=== PATIENT | female | born 1940 | race Caucasian/White ===

== ENCOUNTER 2020-05-16 05:13 | Inpatient (IN) | payer MEDICARE, SELFPAY ==
[2020-05-16] VITALS (123 sets, daily range): BP systolic 69–165; BP diastolic 29–79; PULSE 82–106; RESP 0–39; TEMP 36.4–37.1; O2SAT 87–99; BMI 29.2
--- NOTE | 2020-05-16 05:36 | XR_ITS ---
WS: [id number] PORTABLE CHEST HISTORY: Weakness COMPARISON: 12/21/2013 Lungs are clear and well expanded. No pleural effusion or pneumothorax. Cardiac size: Normal. Mediastinum/Aorta: Normal mediastinum. No osseous abnormality seen. XR/XR chest 1V portable [id number] IMPRESSION: Unremarkable portable chest.
--- NOTE | 2020-05-16 05:37 | ECG_ITS ---
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 Measurements Intervals [place] Rate: 99 P: 20 NM: 130 QRS: -10 QRSD: 76 T: 14 QT: 343 QTc: 440 Interpretive Statements SINUS RHYTHM MINIMAL ST DEPRESSION [0.025+ mV ST DEPRESSION] No previous ECG available for comparison Electronically Signed On 05-16-2020 22:40:19 HALL MONITOR by Tiffany Martinez M.D. [id number]
--- NOTE | 2020-05-16 05:37 | ED_ITS ---
Documented by User: Betsy Wallace 05/16/20 05:43 HPI - General Adult General: Chief complaint: General Medical Stated complaint: vomiting/cold shakes/lower back pain Time Seen by Provider: 05/16/20 05:23 Source: patient Mode of arrival: ambulatory Limitations: no limitations History of Present Illness: HPI narrative: Cheryl is a very nice 79-year-old female who comes in complaining of achy, nauseated and low back pain. Patient states she was in her normal state of health yesterday and went to bed last night but then about 4 AM she awoke with pain across her lower back on both sides that went down into both hips. She feels shaky and tremulous. She states she was diaphoretic and extremely nauseated. She vomited here on her way to the hospital. She felt like she had a fever at home but when she measured her temperature it was normal. Patient states she is never had anything like this before. She is not been around anybody sick. Her is here with her and he is asymptomatic. Patient denies any headache, neck pain, chest pain but does admit to mild shortness of breath. She denies abdominal pain, flank pain, urinary symptoms, skin rashes or other complaints. Associated symptoms: Reports diaphoresis, dyspnea, malaise, nausea and vomiting; Deny chest pain, confusion, headache(s), rash, palpitations or syncope Review of Systems Const: Reports: fever(s), chills, body aches, fatigue, malaise and diaphoresis Eyes: Denies: change in vision, blurry vision, photophobia, eye discomfort, eye discharge, eye redness or yellow eyes ENMT: Denies: throat pain, odynophagia, hoarseness, swelling of lips/tongue, ear or mastoid pain, ear discharge, change in hearing or nasal discharge Card: Denies: chest pain, palpitations, irregular heart rhythm, edema, lightheadedness, syncope, pre-syncope, dyspnea on exertion or orthopnea Resp: Reports: dyspnea; Denies: productive cough, non-productive cough, wheezing, hemoptysis or chest congestion GI: Reports: nausea and vomiting; Denies: abdominal pain, hematemesis, coffee ground emesis, heartburn, diarrhea, constipation, GI cramping, hematochezia or melena : Denies: flank pain, dysuria, urinary frequency, urinary urgency or hematuria Musc: Reports: back pain; Denies: neck pain, extremity pain, extremity swelling, joint pain, joint swelli ng, joint redness, joint warmth or joint stiffness Skin/Breast: Denies: rash, pruritus, erythema, skin pain or skin tenderness Neuro: Denies: headache(s), numbness in extremities, weakness in extremities, sensory changes, lack of coordination, difficulty walking, dizziness, vertigo, confusion, Slurred speech present or seizure-like activity Stas/Lymph: Denies: easy bruising, easy bleeding, petechiae, purpura or enlarged lymph nodes All/Imm: Denies: urticaria, throat swelling, tongue swelling, facial swelling or acute wheezing PFSH ED PFSH: Medical History Hypothyroidism Insomnia Surgical History H/O: hysterectomy Physical Exam Const: COMMON NORMALS: no acute distress, patient oriented x3, no limitations and alert GENERAL APPEARANCE: cooperative HENMT: COMMON NORMALS: normocephalic, atraumatic, external ears normal, EAC's normal and Normal external nose present HEAD & SCALP: normal to inspection, normocephalic and atraumatic FACE & SINUS: normal facial exam and face symmetric NOSE: Normal external nose present and Normal nares present EXTERNAL EAR: Yes external ears normal EXTERNAL AUDITORY CANAL: EAC's normal MOUTH: Normal oral and palatal mucosa present, lip normal and tongue normal Eye: COMMON NORMALS: Equal, round and reactive pupils present and conjunctivae normal GENERAL EYE: appearance normal, both eyes and all related structures ALIGNMENT: Yes alignment normal PERIORBITAL: periorbital findings normal EYELID: eyelids normal CONJUNCTIVA: Yes conjunctivae normal SCLERA: sclerae normal PUPIL: Yes Equal, round and reactive pupils present Neck/C-Spine: COMMON NORMALS: full ROM, no lymphadenopathy, supple, no meningeal signs and no JVD GENERAL: Yes normal visual inspection and Yes trachea midline Chest: COMMONS NORMALS: normal inspection of the chest and normal palpation of entire chest wall Resp: COMMON NORMALS: normal respiratory effort, No retractions, No use of accessory muscles and clear to auscultation bilaterally EFFORT & INSPECTION: Yes able to speak in complete sentences and Yes symmetric chest movement AUSCULTATION: clear to auscultation bilaterally, no crackles, no rales, rhonchi and no wheezes Cardio: COMMON NORMALS: no JVD, regular rate, regular rhythm, S1 normal heart sound present and S2 normal heart sound present RATE: regular rate RHYTHM: regular rhythm HEART SOUNDS: S1 normal heart sound present, S2 normal heart sound present, no click, no gallops, no murmurs and no rubs GI: COMMON NORMALS: Soft to palpation and No hepatosplenomegaly present PALPATION: Yes Soft to palpation, No Tenderness to palpation present (GI), No Guarding due to palpation present (GI), No Rigid due to palpation, Yes No hepatosplenomegaly present, No Hernia present, No Palpable mass present and No Pulsatile mass present : COMMON NORMALS: Yes no CVA tenderness BLADDER/KIDNEY EXAM: Yes no CVA tenderness EXTERNAL FEMALE EXAM: No Hernia present Back/Pelvis: COMMON NORMALS: no CVA tenderness, thoracic and lumbar spine normal to inspection, no thoracic nor lumbar tenderness and thoraco-lumbar ROM normal Extremity: COMMON NORMALS: normal to inspection, full ROM, capillary refill normal, no joint enlargement, no clubbing, cyanosis or edema and no calf tenderness Neuro: COMMON NORMALS: patient oriented x3, CN's II-XII intact bilaterally, moves all extremities, no focal motor deficits and no sensory deficits noted SENSORIUM/ORIENTATION: Yes alert MENINGEAL SIGNS: Yes no meningeal signs SPEECH: speech normal Psych: COMMON NORMALS: mental status grossly normal, Normal thought process present, cooperative, normal affect, speech normal and activity/motor behavior normal SPEECH: Yes normal speech THOUGHT PROCESS: Normal thought process present Skin: COMMON NORMALS: no rashes or lesions noted, turgor normal, no jaundice, no petechiae and no mottling GENERAL SKIN EXAM: no rashes or lesions noted and turgor normal Course Vital Signs: Vital signs: Vital Signs Temperature 97.7 F 05/16/20 07:59 Pulse Rate 106 H 05/16/20 07:59 Respiratory Rate 17 05/16/20 06:21 Blood Pressure 132/61 05/16/20 07:59 Pulse Oximetry 96 05/16/20 07:59 [facility] - General Adult Lab Data: Labs: Lab Results 05/16/20 05/16/20 05/16/20 Range/Units 05:55 05:55 05:55 WBC 1.5 L (4.0-10.0) 10^3/ uL RBC 4.24 (4.1-5.3) 10^6/u L Hgb 12.4 (11.5-15.3) g/dL Hct 40.1 (37.0-47.0) % MCV 94.6 (81-99) fL MCH 29.2 (28.0-34.0) pg MCHC 30.9 (30.0-36.0) g/dL RDW 13.2 (12.1-15.1) % Plt Count 276 (130-400) 10^3/c mm MPV 10.1 (7.4-10.4) fL Neut % (Auto) 55.7 % Lymph % (Auto) 33.6 % [place] % (Auto) 0.0 % Eos % (Auto) 1.3 % Baso % (Auto) 0.7 % Neut # (Auto) 0.83 L* (1.8-7.7) 10^3/u L Lymph # (Auto) 0.5 L (0.8-4.8) 10^3/u L [place] # (Auto) 0.0 L (0.2-0.9) 10^3/u L Eos # (Auto) 0.0 (0.0-0.8) 10^3/u L Baso # (Auto) 0.0 (0.0-0.1) 10^3/u L Nucleated RBC % (a uto) 0 % Nucleated RBCs # 0.0 /100WBC Sodium 141 (136-145) mmol/L Potassium 3.7 (3.5-5.1) mmol/L Chloride 105 (98-107) mmol/L Carbon Dioxide 22 (22-29) mmol/L Anion Gap 17.7 (5-19) BUN 17 (8-23) mg/dL Creatinine 0.5 (0.5-0.9) mg/dL GFR Calculation Not Reportable Glucose 87 (65-115) mg/dL Calculated Osmolal ity 293 (285-295) mOsm/k g Lactic Acid 2.9 H (0.5-2.2) mmol/L Calcium 9.4 (8.5-10.5) mg/dL Magnesium 1.7 (1.7-2.3) mg/dL Total Bilirubin 0.6 (0.15-1.2) mg/dL AST 13 (0-32) U/L ALT 11 (0-33) U/L Alkaline Phosphata se 81 (35-105) IU/L Troponin T Baselin e (0-10) ng/L Total Protein 6.6 (6.6-8.7) g/dL Albumin 4.1 (3.5-5.2) g/dL Globulin 2.5 (1.3-4.6) g/dL Lipase 31 (13-60) U/L Urine Color (Yellow) Urine Appearance (CLEAR) Urine pH (5-7) Ur Specific Gravit y (1.005-1.030) Urine Protein (Negative) Urine Glucose (UA) (Normal) Urine Ketones (Negative) Urine Blood (Negative) Urine Nitrate (Negative) Urine Bilirubin (Negative) Urine Urobilinogen (Negative) mg/dL Ur Leukocyte Mellisa ase (Negative) Urine RBC (0-2) /hpf Urine WBC (0-5) /hpf Ur Squamous Epith Cells (0-5) /hpf Amorphous Sediment Urine Bacteria (NONE) /hpf Influenza Type A A g (Negative) Influenza Type B A g (Negative) SARS-CoV-2 Ag (Rap id) (Negative) 05/16/20 05/16/20 05/16/20 Range/Units 05:55 06:05 06:05 WBC (4.0-10.0) 10^3/ uL RBC (4.1-5.3) 10^6/u L Hgb (11.5-15.3) g/dL Hct (37.0-47.0) % MCV (81-99) fL MCH (28.0-34.0) pg MCHC (30.0-36.0) g/dL RDW (12.1-15.1) % Plt Count (130-400) 10^3/c mm MPV (7.4-10.4) fL Neut % (Auto) % Lymph % (Auto) % [place] % (Auto) % Eos % (Auto) % Baso % (Auto) % Neut # (Auto) (1.8-7.7) 10^3/u L Lymph # (Auto) (0.8-4.8) 10^3/u L [place] # (Auto) (0.2-0.9) 10^3/u L Eos # (Auto) (0.0-0.8) 10^3/u L Baso # (Auto) (0.0-0.1) 10^3/u L Nucleated RBC % (a uto) % Nucleated RBCs # /100WBC Sodium (136-145) mmol/L Potassium (3.5-5.1) mmol/L Chloride (98-107) mmol/L Carbon Dioxide (22-29) mmol/L Anion Gap (5-19) BUN (8-23) mg/dL Creatinine (0.5-0.9) mg/dL GFR Calculation Glucose (65-115) mg/dL Calculated Osmolal ity (285-295) mOsm/k g Lactic Acid (0.5-2.2) mmol/L Calcium (8.5-10.5) mg/dL Magnesium (1.7-2.3) mg/dL Total Bilirubin (0.15-1.2) mg/dL AST (0-32) U/L ALT (0-33) U/L Alkaline Phosphata se (35-105) IU/L Troponin T Baselin e 10 (0-10) ng/L Total Protein (6.6-8.7) g/dL Albumin (3.5-5.2) g/dL Globulin (1.3-4.6) g/dL Lipase (13-60) U/L Urine Color Yellow (Yellow) Urine Appearance Cloudy A (CLEAR) Urine pH 5 (5-7) Ur Specific Gravit y 1.020 (1.005-1.030) Urine Protein Neg (Negative) Urine Glucose (UA) Norm (Normal) Urine Ketones Negative (Negative) Urine Blood Neg (Negative) Urine Nitrate Positive H (Negative) Urine Bilirubin Neg (Negative) Urine Urobilinogen Norm (Negative) mg/dL Ur Leukocyte Mellisa ase 2+ H (Negative) Urine RBC None (0-2) /hpf Urine WBC Too numerous to c nt H (0-5) /hpf Ur Squamous Epith Cells Too numerous to c nt H (0-5) /hpf Amorphous Sediment Not Reportable Urine Bacteria 4+ H (NONE) /hpf Influenza Type A A g Negative (Negative) Influenza Type B A g Negative (Negative) SARS-CoV-2 Ag (Rap id) (Negative) 05/16/20 Range/Units 06:05 WBC (4.0-10.0) 10^3/ uL RBC (4.1-5.3) 10^6/u L Hgb (11.5-15.3) g/dL Hct (37.0-47.0) % MCV (81-99) fL MCH (28.0-34.0) pg MCHC (30.0-36.0) g/dL RDW (12.1-15.1) % Plt Count (130-400) 10^3/c mm MPV (7.4-10.4) fL Neut % (Auto) % Lymph % (Auto) % [place] % (Auto) % Eos % (Auto) % Baso % (Auto) % Neut # (Auto) (1.8-7.7) 10^3/u L Lymph # (Auto) (0.8-4.8) 10^3/u L [place] # (Auto) (0.2-0.9) 10^3/u L Eos # (Auto) (0.0-0.8) 10^3/u L Baso # (Auto) (0.0-0.1) 10^3/u L Nucleated RBC % (a uto) % Nucleated RBCs # /100WBC Sodium (136-145) mmol/L Potassium (3.5-5.1) mmol/L Chloride (98-107) mmol/L Carbon Dioxide (22-29) mmol/L Anion Gap (5-19) BUN (8-23) mg/dL Creatinine (0.5-0.9) mg/dL GFR Calculation Glucose (65-115) mg/dL Calculated Osmolal ity (285-295) mOsm/k g Lactic Acid (0.5-2.2) mmol/L Calcium (8.5-10.5) mg/dL Magnesium (1.7-2.3) mg/dL Total Bilirubin (0.15-1.2) mg/dL AST (0-32) U/L ALT (0-33) U/L Alkaline Phosphata se (35-105) IU/L Troponin T Baselin e (0-10) ng/L Total Protein (6.6-8.7) g/dL Albumin (3.5-5.2) g/dL Globulin (1.3-4.6) g/dL Lipase (13-60) U/L Urine Color (Yellow) Urine Appearance (CLEAR) Urine pH (5-7) Ur Specific Gravit y (1.005-1.030) Urine Protein (Negative) Urine Glucose (UA) (Normal) Urine Ketones (Negative) Urine Blood (Negative) Urine Nitrate (Negative) Urine Bilirubin (Negative) Urine Urobilinogen (Negative) mg/dL Ur Leukocyte Mellisa ase (Negative) Urine RBC (0-2) /hpf Urine WBC (0-5) /hpf Ur Squamous Epith Cells (0-5) /hpf Amorphous Sediment Urine Bacteria (NONE) /hpf Influenza Type A A g (Negative) Influenza Type B A g (Negative) SARS-CoV-2 Ag (Rap id) Negative (Negative) EKG Data^: EKG 1: Computer generated interpretation: Chest X-Ray 05/16/20 05:36 IMPRESSION: Unremarkable portable chest. EKG 2: Computer generated interpretation: Chest X-Ray 05/16/20 05:36 IMPRESSION: Unremarkable portable chest. 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 Exam Comprehensive Documented by User: Isaac Andrews MD 05/16/20 08:04 HPI - General Adult General: Chief complaint: General Medical Stated complaint: vomiting/cold shakes/lower back pain Time Seen by Provider: 05/16/20 05:23 PFSH ED PFSH: Medical History Hypothyroidism Insomnia Surgical History H/O: hysterectomy Course Vital Signs: Vital signs: Vital Signs Temperature 97.7 F 05/16/20 07:59 Pulse Rate 106 H 05/16/20 07:59 Respiratory Rate 17 12/17/20 06:21 Blood Pressure 132/61 05/16/20 07:59 Pulse Oximetry 96 05/16/20 07:59 MDM - General Adult MDM Narrative: Medical decision making narrative: Patient remained mildly tachycardic, borderline hypotensive, with continued vomiting in the emergency department. She was given a 30 mL/kg bolus of IV normal saline and an additional dose of Zofran. EKG shows sinus tachycardia without evidence of ST segment elevation or depression. Urinalysis is concerning for UTI and lactic acid is elevated. White blood cell count is low as is neutrophil count, however she denies history of chemotherapy. She states she had hysterectomy performed 13 years ago and has had no hematologic medical problems since that time. She was empirically started on ceftriaxone after blood cultures were drawn. I spoke with the hospitalist to admit the patient for further observation and care to the ICU. Lab Data: Labs: Lab Results 05/16/20 05/16/20 05/16/20 Range/Units 05:55 05:55 05:55 WBC 1.5 L (4.0-10.0) 10^3/ uL RBC 4.24 (4.1-5.3) 10^6/u L Hgb 12.4 (11.5-15.3) g/dL Hct 40.1 (37.0-47.0) % MCV 94.6 (81-99) fL MCH 29.2 (28.0-34.0) pg MCHC 30.9 (30.0-36.0) g/dL RDW 13.2 (12.1-15.1) % Plt Count 276 (130-400) 10^3/c mm MPV 10.1 (7.4-10.4) fL Neut % (Auto) 55.7 % Lymph % (Auto) 33.6 % [place] % (Auto) 0.0 % Eos % (Auto) 1.3 % Baso % (Auto) 0.7 % Neut # (Auto) 0.83 L* (1.8-7.7) 10^3/u L Lymph # (Auto) 0.5 L (0.8-4.8) 10^3/u L [place] # (Auto) 0.0 L (0.2-0.9) 10^3/u L Eos # (Auto) 0.0 (0.0-0.8) 10^3/u L Baso # (Auto) 0.0 (0.0-0.1) 10^3/u L Nucleated RBC % (a uto) 0 % Nucleated RBCs # 0.0 /100WBC Sodium 141 (136-145) mmol/L Potassium 3.7 (3.5-5.1) mmol/L Chloride 105 (98-107) mmol/L Carbon Dioxide 22 (22-29) mmol/L Anion Gap 17.7 (5-19) BUN 17 (8-23) mg/dL Creatinine 0.5 (0.5-0.9) mg/dL GFR Calculation Not Reportable Glucose 87 (65-115) mg/dL Calculated Osmolal ity 293 (285-295) mOsm/k g Lactic Acid 2.9 H (0.5-2.2) mmol/L Calcium 9.4 (8.5-10.5) mg/dL Magnesium 1.7 (1.7-2.3) mg/dL Total Bilirubin 0.6 (0.15-1.2) mg/dL AST 13 (0-32) U/L ALT 11 (0-33) U/L Alkaline Phosphata se 81 (35-105) IU/L Troponin T Baselin e (0-10) ng/L Total Protein 6.6 (6.6-8.7) g/dL Albumin 4.1 (3.5-5.2) g/dL Globulin 2.5 (1.3-4.6) g/dL Lipase 31 (13-60) U/L Urine Color (Yellow) Urine Appearance (CLEAR) Urine pH (5-7) Ur Specific Gravit y (1.005-1.030) Urine Protein (Negative) Urine Glucose (UA) (Normal) Urine Ketones (Negative) Urine Blood (Negative) Urine Nitrate (Negative) Urine Bilirubin (Negative) Urine Urobilinogen (Negative) mg/dL Ur Leukocyte Mellisa ase (Negative) Urine RBC (0-2) /hpf Urine WBC (0-5) /hpf Ur Squamous Epith Cells (0-5) /hpf Amorphous Sediment Urine Bacteria (NONE) /hpf Influenza Type A A g (Negative) Influenza Type B A g (Negative) SARS-CoV-2 Ag (Rap id) (Negative) 05/16/20 05/16/20 05/16/20 Range/Units 05:55 06:05 06:05 WBC (4.0-10.0) 10^3/ uL RBC (4.1-5.3) 10^6/u L Hgb (11.5-15.3) g/dL Hct (37.0-47.0) % MCV (81-99) fL MCH (28.0-34.0) pg MCHC (30.0-36.0) g/dL RDW (12.1-15.1) % Plt Count (130-400) 10^3/c mm MPV (7.4-10.4) fL Neut % (Auto) % Lymph % (Auto) % [place] % (Auto) % Eos % (Auto) % Baso % (Auto) % Neut # (Auto) (1.8-7.7) 10^3/u L Lymph # (Auto) (0.8-4.8) 10^3/u L [place] # (Auto) (0.2-0.9) 10^3/u L Eos # (Auto) (0.0-0.8) 10^3/u L Baso # (Auto) (0.0-0.1) 10^3/u L Nucleated RBC % (a uto) % Nucleated RBCs # /100WBC Sodium (136-145) mmol/L Potassium (3.5-5.1) mmol/L Chloride (98-107) mmol/L Carbon Dioxide (22-29) mmol/L Anion Gap (5-19) BUN (8-23) mg/dL Creatinine (0.5-0.9) mg/dL GFR Calculation Glucose (65-115) mg/dL Calculated Osmolal ity (285-295) mOsm/k g Lactic Acid (0.5-2.2) mmol/L Calcium (8.5-10.5) mg/dL Magnesium (1.7-2.3) mg/dL Total Bilirubin (0.15-1.2) mg/dL AST (0-32) U/L ALT (0-33) U/L Alkaline Phosphata se (35-105) IU/L Troponin T Baselin e 10 (0-10) ng/L Total Protein (6.6-8.7) g/dL Albumin (3.5-5.2) g/dL Globulin (1.3-4.6) g/dL Lipase (13-60) U/L Urine Color Yellow (Yellow) Urine Appearance Cloudy A (CLEAR) Urine pH 5 (5-7) Ur Specific Gravit y 1.020 (1.005-1.030) Urine Protein Neg (Negative) Urine Glucose (UA) Norm (Normal) Urine Ketones Negative (Negative) Urine Blood Neg (Negative) Urine Nitrate Positive H (Negative) Urine Bilirubin Neg (Negative) Urine Urobilinogen Norm (Negative) mg/dL Ur Leukocyte Mellisa ase 2+ H (Negative) Urine RBC None (0-2) /hpf Urine WBC Too numerous to c nt H (0-5) /hpf Ur Squamous Epith Cells Too numerous to c nt H (0-5) /hpf Amorphous Sediment Not Reportable Urine Bacteria 4+ H (NONE) /hpf Influenza Type A A g Negative (Negative) Influenza Type B A g Negative (Negative) SARS-CoV-2 Ag (Rap id) (Negative) 05/16/20 Range/Units 06:05 WBC (4.0-10.0) 10^3/ uL RBC (4.1-5.3) 10^6/u L Hgb (11.5-15.3) g/dL Hct (37.0-47.0) % MCV (81-99) fL MCH (28.0-34.0) pg MCHC (30.0-36.0) g/dL RDW (12.1-15.1) % Plt Count (130-400) 10^3/c mm MPV (7.4-10.4) fL Neut % (Auto) % Lymph % (Auto) % [place] % (Auto) % Eos % (Auto) % Baso % (Auto) % Neut # (Auto) (1.8-7.7) 10^3/u L Lymph # (Auto) (0.8-4.8) 10^3/u L [place] # (Auto) (0.2-0.9) 10^3/u L Eos # (Auto) (0.0-0.8) 10^3/u L Baso # (Auto) (0.0-0.1) 10^3/u L Nucleated RBC % (a uto) % Nucleated RBCs # /100WBC Sodium (136-145) mmol/L Potassium (3.5-5.1) mmol/L Chloride (98-107) mmol/L Carbon Dioxide (22-29) mmol/L Anion Gap (5-19) BUN (8-23) mg/dL Creatinine (0.5-0.9) mg/dL GFR Calculation Glucose (65-115) mg/dL Calculated Osmolal ity (285-295) mOsm/k g Lactic Acid (0.5-2.2) mmol/L Calcium (8.5-10.5) mg/dL Magnesium (1.7-2.3) mg/dL Total Bilirubin (0.15-1.2) mg/dL AST (0-32) U/L ALT (0-33) U/L Alkaline Phosphata se (35-105) IU/L Troponin T Baselin e (0-10) ng/L Total Protein (6.6-8.7) g/dL Albumin (3.5-5.2) g/dL Globulin (1.3-4.6) g/dL Lipase (13-60) U/L Urine Color (Yellow) Urine Appearance (CLEAR) Urine pH (5-7) Ur Specific Gravit y (1.005-1.030) Urine Protein (Negative) Urine Glucose (UA) (Normal) Urine Ketones (Negative) Urine Blood (Negative) Urine Nitrate (Negative) Urine Bilirubin (Negative) Urine Urobilinogen (Negative) mg/dL Ur Leukocyte Mellisa ase (Negative) Urine RBC (0-2) /hpf Urine WBC (0-5) /hpf Ur Squamous Epith Cells (0-5) /hpf Amorphous Sediment Urine Bacteria (NONE) /hpf Influenza Type A A g (Negative) Influenza Type B A g (Negative) SARS-CoV-2 Ag (Rap id) Negative (Negative) EKG Data^: EKG 1: EKG interpretation date: 05/16/20 EKG interpretation time: 07:33 Interpretation: Sinus tachycardia with poor baseline secondary to motion artifact, no obvious ST elevation or depression, no T wave inversions, intervals within normal limits. Computer generated interpretation: Chest X-Ray 05/16/20 05:36 IMPRESSION: Unremarkable portable chest. EKG 2: EKG interpretation date: 05/16/20 EKG interpretation time: 06:15 Interpretation: Sinus rhythm with rate of 99, no ST elevation or depression, intervals within normal limits. Of note, this is the first EKG performed in the emergency department, despite being documented as #2. Computer generated interpretation: Chest X-Ray 05/16/20 05:36
[2020-05-16 06:15] LABS: Lactic Sepsis W/Reflex 2.9 mmol/L (0.5-2.2)
[2020-05-16 06:16] LABS: Alanine Aminotransferase 11 U/L (0-33); Albumin Level 4.1 g/dL (3.5-5.2); Alkaline Phosphatase 81 IU/L (35-105); Anion Gap 17.7 (5-19); Aspartate Amino Transferase 13 U/L (0-32); Blood Urea Nitrogen 17 mg/dL (8-23); Calcium 9.4 mg/dL (8.5-10.5); Carbon Dioxide 22 mmol/L (22-29); Chloride 105 mmol/L (98-107); Globulin 2.5 g/dL (1.3-4.6); Glucose 87 mg/dL (65-115); Lipase 31 U/L (13-60); Magnesium 1.7 mg/dL (1.7-2.3); Osmolality Calculated 293 mOsm/kg (285-295); Potassium 3.7 mmol/L (3.5-5.1); Sodium 141 mmol/L (136-145); Total Bilirubin 0.6 mg/dL (0.15-1.2); Total Protein 6.6 g/dL (6.6-8.7)
[2020-05-16 06:19] LABS: Troponin(5th) Baseline 10 ng/L (0-10)
[2020-05-16 06:27] LABS: Basophils % 0.7 %; Eosinophils % 1.3 %; Hematocrit 40.1 % (37.0-47.0); Hemoglobin 12.4 g/dL (11.5-15.3); Lymphocytes # 0.5 10^3/uL (0.8-4.8); Lymphocytes % 33.6 %; Mean Corpuscular HGB Conc 30.9 g/dL (30.0-36.0); Mean Corpuscular Hemoglobin 29.2 pg (28.0-34.0); Mean Corpuscular Volume 94.6 fL (81-99); Mean Platelet Volume 10.1 fL (7.4-10.4); Neutrophils % 55.7 %; Nucleated Red Blood Cells % 0 %; Platelet Count 276 10^3/cmm (130-400); Red Blood Count 4.24 10^6/uL (4.1-5.3); Red Cell Distribution Width 13.2 % (12.1-15.1); White Blood Count 1.5 10^3/uL (4.0-10.0)
[2020-05-16 06:38] LABS: Influenza A by IFA Negative (Negative); Influenza B by IFA Negative (Negative); SARS Covid-2 Antigen Negative (Negative)
--- NOTE | 2020-05-16 06:47 | ED_ITS ---
HPI - URI/Sore Throat General: Chief Complaint: General Medical Stated Complaint: vomiting/cold shakes/lower back pain Time Seen by Provider: 05/16/20 05:23 Source: patient Mode of arrival: ambulatory Limitations: no limitations History of Present Illness: HPI Narrative: Patient is a tearful 5-year-old seen for fussiness, history of cough, grunting, and wheezing. Mom is a ACCESS CONTROL OFFICER and noticed that she was wheezing. Mom states that she has not slept well the last few nights, and that she is tearful and clingy. She has a history of reactive airway disease for which she has at times needed steroids and breathing treatments. Mom states that their nebulizer at home is broken. Her brother has a runny nose and patient had a fever on Wednesday, 4 days ago, but since that time has had increased fussiness, decreased appetite, progressively getting worse. Since Wednesday, she has not had a fever. She has not required Tylenol or ibuprofen. She continues to eat and drink, however smaller amounts than usual. She is up-to-date on immunizations and has no chronic medical problems for which she takes daily medications. She has no surgical history. Her mother has a history of asthma which requires intermittent steroids and albuterol. Mom works as a supervisor beet [employer] but has no Covid symptoms and father similarly has had no Covid symptoms. The child stays home and does not attend daycare. [facility] ED PFSH: Medical History Hypothyroidism Insomnia Surgical History H/O: hysterectomy Course Vital Signs: Vital signs: Vital Signs Temperature 98.2 F 05/16/20 05:18 Pulse Rate 90 05/16/20 06:21 Respiratory Rate 17 05/16/20 06:21 Blood Pressure 98/57 05/16/20 06:21 Pulse Oximetry 96 05/16/20 06:21 MDM - URI/Sore Throat Lab Data: Labs: Lab Results 05/16/20 05/16/20 05/16/20 Range/Units 05:55 05:55 05:55 Sodium 141 (136-145) mmol/L Potassium 3.7 (3.5-5.1) mmol/L Chloride 105 (98-107) mmol/L Carbon Dioxide 22 (22-29) mmol/L Anion Gap 17.7 (5-19) BUN 17 (8-23) mg/dL Creatinine 0.5 (0.5-0.9) mg/dL GFR Calculation Not Reportable Glucose 87 (65-115) mg/dL Calculated Osmolal ity 293 (285-295) mOsm/k g Lactic Acid 2.9 H (0.5-2.2) mmol/L Calcium 9.4 (8.5-10.5) mg/dL Magnesium 1.7 (1.7-2.3) mg/dL Total Bilirubin 0.6 (0.15-1.2) mg/dL AST 13 (0-32) U/L ALT 11 (0-33) U/L Alkaline Phosphata se 81 (35-105) IU/L Troponin T Baselin e 10 (0-10) ng/L Total Protein 6.6 (6.6-8.7) g/dL Albumin 4.1 (3.5-5.2) g/dL Globulin 2.5 (1.3-4.6) g/dL Lipase 31 (13-60) U/L Urine Color (Yellow) Urine Appearance (CLEAR) Urine pH (5-7) Ur Specific Gravit y (1.005-1.030) Urine Protein (Negative) Urine Glucose (UA) (Normal) Urine Ketones (Negative) Urine Blood (Negative) Urine Nitrate (Negative) Urine Bilirubin (Negative) Urine Urobilinogen (Negative) mg/dL Ur Leukocyte Mellisa ase (Negative) Urine RBC (0-2) /hpf Urine WBC (0-5) /hpf Ur Squamous Epith Cells (0-5) /hpf Amorphous Sediment Urine Bacteria (NONE) /hpf Influenza Type A A g (Negative) Influenza Type B A g (Negative) SARS-CoV-2 Ag (Rap id) (Negative) 05/16/20 05/16/20 05/16/20 Range/Units 06:05 06:05 06:05 Sodium (136-145) mmol/L Potassium (3.5-5.1) mmol/L Chloride (98-107) mmol/L Carbon Dioxide (22-29) mmol/L Anion Gap (5-19) BUN (8-23) mg/dL Creatinine (0.5-0.9) mg/dL GFR Calculation Glucose (65-115) mg/dL Calculated Osmolal ity (285-295) mOsm/k g Lactic Acid (0.5-2.2) mmol/L Calcium (8.5-10.5) mg/dL Magnesium (1.7-2.3) mg/dL Total Bilirubin (0.15-1.2) mg/dL AST (0-32) U/L ALT (0-33) U/L Alkaline Phosphata se (35-105) IU/L Troponin T Baselin e (0-10) ng/L Total Protein (6.6-8.7) g/dL Albumin (3.5-5.2) g/dL Globulin (1.3-4.6) g/dL Lipase (13-60) U/L Urine Color Yellow (Yellow) Urine Appearance Cloudy A (CLEAR) Urine pH 5 (5-7) Ur Specific Gravit y 1.020 (1.005-1.030) Urine Protein Neg (Negative) Urine Glucose (UA) Norm (Normal) Urine Ketones Negative (Negative) Urine Blood Neg (Negative) Urine Nitrate Positive H (Negative) Urine Bilirubin Neg (Negative) Urine Urobilinogen Norm (Negative) mg/dL Ur Leukocyte Mellisa ase 2+ H (Negative) Urine RBC None (0-2) /hpf Urine WBC Too numerous to c nt H (0-5) /hpf Ur Squamous Epith Cells Too numerous to c nt H (0-5) /hpf Amorphous Sediment Not Reportable Urine Bacteria 4+ H (NONE) /hpf Influenza Type A A g Negative (Negative) Influenza Type B A g Negative (Negative) SARS-CoV-2 Ag (Rap id) Negative (Negative) Coding Level of Care Code ED Pediatric Dental Assistant for [facility]
[2020-05-16] MEDS: ondansetron 2 mg/ML SDV 2 mL 4 MG IVP ×3 (06:48→17:09)
[2020-05-16] MEDS: sodium chloride 0.9% 1,000 ML 100 ML IV (06:48)
[2020-05-16 06:50] LABS: Neutrophils # 0.83 10^3/uL (1.8-7.7); Slide Review Slide Review Perform
--- NOTE | 2020-05-16 07:37 | ECG_ITS ---
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 Measurements Intervals [place] Rate: 104 P: 28 MO: 168 QRS: 1 QRSD: 81 T: 124 QT: 354 QTc: 466 Interpretive Statements SINUS TACHYCARDIA POSSIBLE LEFT ATRIAL ENLARGEMENT [-0.1mV P WAVE IN V1/V2] ST DEVIATION AND MODERATE T-WAVE ABNORMALITY, CONSIDER LATERAL ISCHEMIA [-0.1+ mV T WAVE IN I/aVL/V5/V6] Compared to ECG 05/16/2020 06:15:48 T-wave abnormality now present Possible ischemia now present Sinus rhythm no longer present ST (T wave) deviation no longer present Electronically Signed On 05-16-2020 22:54:16 SECRET CODE EXPERT by Tiffany Martinez M.D. [id number]
[2020-05-16 07:45] LABS: Reflex Lactate Order REFLEX LACTIC ORDERD
[2020-05-16] MEDS: sodium chloride 0.9% 2,109.21 ML 2109.2 ML IV (07:56)
[2020-05-16 08:15] LABS: Troponin 5 2HR 12.41 ng/L (0-10); Troponin 5 2HR Delta 2.41 ABS# (0-10)
--- NOTE | 2020-05-16 08:16 | PC.NURSE ---
nurse in room to do Straight catheter. Pt is nauseous and told nurse i just need to wait because she can't do it right now
[2020-05-16] MEDS: cefTRIAXone 1,000 MG in sodium chloride 0.9% (plus) 50 ML 100 MG IV ×2 (08:34→19:55)
--- NOTE | 2020-05-16 09:10 | PM.HP ---
Providers/Chief Complaint Admitting Physician: Tomer Gu MD Primary Care Provider: Steve Colorado MD Chief Complaint: vomiting/cold shakes/lower back pain History of Present Illness Cheryl Hector is a 79 year old female who presents to the hospital with history of feeling ill with nausea, chills, low back after waking up in the middle of the night. She has not had a documented fever but felt as if she had one. She reported some itching in the last several days she attributed to a yeast infection but has had no significant dysuria. She denies any exposure to Covid, or history of Covid. She reports no chest discomfort, or shortness of breath. She reports no prior history of severe UTI. Review of Systems General: Reports: 10 or more systems reviewed and unremarkable except in HPI and below Const: Reports: fever(s), chills, fatigue and malaise Eyes: Denies: change in vision ENMT: Denies: throat pain Card: Denies: chest pain Resp: Denies: dyspnea GI: Reports: nausea and vomiting; Denies: abdominal pain, hematemesis, hematochezia or melena : Denies: flank pain Musc: Denies: neck pain Skin/Breast: Denies: rash Neuro: Denies: headache(s) Psych: Denies: anxiety Endo: Denies: polyuria Stas/Lymph: Denies: easy bruising All/Imm: Denies: urticaria Medications/Allergies Home Medications Medication Instructions Recorded Confirmed Last Taken Type diazepam 5 mg PO BID PRN 05/16/20 05/16/20 Unknown History levothyroxine 75 mcg PO DAILY@06 05/16/20 05/16/20 05/15/20 History zolpidem 5 - 10 mg PO BEDTIME PRN 05/16/20 05/16/20 Unknown History Allergies Allergy/AdvReac Type Severity Reaction Status Date / Time No Known Allergies Allergy Verified 05/16/20 05:26 PFSH Acute PFSH: Medical History (Updated 05/16/20 @ 10:39 by Tomer Gu MD) History of cervical cancer Hypothyroidism Insomnia Surgical History (Updated 05/16/20 @ 09:14 by Tomer Gu MD) H/O: hysterectomy History of cholecystectomy Family History (Updated 05/16/20 @ 09:14 by Tomer Gu MD) Other CAD (coronary artery disease) Social History (Updated 05/16/20 @ 09:14 by Tomer Gu MD) Smoking and tobacco status: never smoked Alcohol intake: never Vitals/I&O/Wt Last Vital Signs Temp 97.7 F 05/16/20 07:59 Pulse 106 H 05/16/20 07:59 Resp 17 05/16/20 06:21 BP 132/61 05/16/20 07:59 Pulse Ox 96 05/16/20 07:59 Weight last 48 hrs Weight 70.307 kg Physical Exam Narrative: EXAM NARRATIVE: General exam is a white female, tachycardic, actively vomiting with a systolic blood pressure of 95. Shaking chills are noted. HEENT: Atraumatic normocephalic. Pupils equally round. Oropharynx is clear Neck is supple no lymphadenopathy or thyromegaly Cardiovascular regular rate and rhythm without murmur, no S3 or S4 Lungs clear no wheezing or crackles Abdomen is soft nontender with positive bowel sounds was deferred Extremities no cyanosis clubbing or edema, cap refill less than 2 seconds Skin no rash Neuro no focal deficits Sepsis: Is patient septic: Yes Focused sepsis exam performed: Yes Date exam was performed: 05/16/20 Time exam was performed: 08:00 Data : 05/16/20 05:55 05/16/20 05:55 Micro: Microbiology 05/16/20 07:39 Blood Culture - Preliminary Blood SPECIMEN COLLECTED 05/16/20 07:39 Blood Culture - Preliminary Blood SPECIMEN COLLECTED Other data: EKG demonstrates sinus rhythm, borderline left axis deviation, nonspecific ST-T wave changes. Heart rate at time of EKG was 99. CBC demonstrates absolute neutrophil count of approximately 800. Troponin 12.4 at 120 minutes with baseline of 10 Urinalysis demonstrates 15-25 whites, 0-4 squamous, 0-4 reds, 3+ bacteria, positive nitrates Rapid Covid and influenza a and B are negative Chest x-ray visualized by me demonstrates no infiltrate Lactic acid level is elevated Blood cultures have been drawn A&P Assessment and plan (1) Sepsis secondary to UTI: Admission to ICU initially secondary to sepsis when I evaluated the patient she appeared septic with shaking chills, heart rate of 109, borderline hypotension with systolic around 95, elevated lactic acid level and leukopenia. Continued aggressive fluid resuscitation Blood cultures, urine cultures IV antibiotics consisting of ceftriaxone 1 g IV every 12 hours As she is having significant nausea and vomiting will hold on p.o. intake currently. Status: Acute (2) UTI (urinary tract infection): See orders for antibiotic above Check renal ultrasound for structure, and post void residual Status: Acute (3) Leukopenia: Likely secondary to sepsis Recheck tomorrow Status: Acute (4) Hypothyroidism: Check TSH Status: Acute Additional A&P Information History of insomnia, continue patient's home Ambien Full code Lovenox for DVT prophylaxis Attestations Medical Necessity Statement*: Will need greater than 2 midnight stay secondary to sepsis, UTI Critical Care Time: 49 minutes spent in critical care time at bedside interviewing the patient, talking with the emergency department physician, reviewing laboratory and formulating plan. This patient has sepsis, with borderline hypotension and high risk for decompensation and/or . Coding Level of Care Code Acute Short Piece Handler for [facility] Fwd Diagnoses Sepsis secondary to UTI A41.9; N39.0 UTI (urinary tract infection) N39.0 Leukopenia D72.819 Hypothyroidism E03.9
[2020-05-16 09:14] LABS: Urine Appearance Hazy (CLEAR); Urine Color Yellow (Yellow)
[2020-05-16 09:15] LABS: Bilirubin Urine Neg (Negative); Blood Urine 2+ (Negative); Glucose Urine UA Norm (Normal); Ketones Urine Negative (Negative); Leukocyte Esterase Urine Trace (Negative); Nitrate Urine Positive (Negative); Protein Urine Neg (Negative); Specific Gravity, Urine 1.015 (1.005-1.030); Urobilinogen Urine Norm (Negative); pH Urine 6 (5-7)
[2020-05-16 09:43] LABS: Bacteria Urine 3+ /hpf; RBC Urine 0-4 /hpf (0-2); Squamous Epithelial Cell Urine 0-4 /hpf (0-5); WBC Urine 15-25 /hpf (0-5)
[2020-05-16 09:44] LABS: Add Urine Culture? No
[2020-05-16] MEDS: enoxaparin 40 mg/0.4 mL Syringe SUBCUT (10:28)
[2020-05-16] MEDS: sodium chloride 0.9% 500 ML 999 ML IV ×2 (10:29→15:02)
[2020-05-16] MEDS: sodium chloride 0.9% 1,000 ML 150 ML IV ×2 (10:30→16:59)
--- NOTE | 2020-05-16 10:42 | US_ITS ---
WS: [id number] RENAL ULTRASOUND HISTORY: UTI, sepsis COMPARISON: None available. TECHNIQUE: 2-D and color Doppler imaging of the kidney submitted. Right kidney: 10.7 cm x 5.7 cm x 4.5 cm. Normal echogenicity with no hydronephrosis or mass. Cortical cyst superior pole measures 1.0 cm. Left kidney: 10.9 cm x 5.3 cm x 5.1 cm. Normal echogenicity with no hydronephrosis or mass. Aorta: Normal. Urinary Bladder: Normal distention. Well-distended urinary bladder. No intraluminal filling defect. P atient was unable to void. US/US renal BI* [id number] IMPRESSION: 1. No hydronephrosis or solid mass. 2. Well-distended urinary bladder. Patient was unable to void.
[2020-05-16 11:20] LABS: Thyroid Stimulating Hormone 1.52 uIU/mL (0.27-4.20)
--- NOTE | 2020-05-16 11:37 | ECG_ITS ---
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 Measurements Intervals [place] Rate: 86 P: 50 VT: 162 QRS: 1 QRSD: 94 T: 40 QT: 357 QTc: 429 Interpretive Statements SINUS RHYTHM Compared to ECG 05/16/2020 07:32:22 Sinus tachycardia no longer present T-wave abnormality no longer present Possible ischemia no longer present Electronically Signed On 05-16-2020 22:55:29 INSTRUMENTATION DESIGNER by Tiffany Martinez M.D. [id number]
[2020-05-16 12:20] LABS: Troponin 5 6HR 17.89 ng/L (0-10); Troponin 5 6HR Delta 7.89 ng/L (0-12)
[2020-05-16 12:27] LABS: Lactic Acid level (Lactate) 5.5 mmol/L (0.5-2.2)
--- NOTE | 2020-05-16 12:49 | PC.CHAP ---
Pastoral Care Encounter/Spiritual Assessment Type of Contact [] Declined tack puller machine visit [] Patient/Family/Request visit [] Outpatient visit [] Follow-up visit [] Physician referral [] Code/Alert [] Routine visit [] Staff referral [] Actively dying [] Patient sleeping [] Family support [] [] Out of room [] Palliative care [] [] Receiving care in room [] Pre-surgical visit [] Trauma [] Long length of stay [x] ICU visit [] Other: Relational/Emotional Strength [] Patient feels connected with others/family/visitors/staff [] Distress [] Loneliness/isolation [] Abandonment Spirituality of Patient [] Person of Sophia [] Attends Spiritism of their Sophia [] Believes in Prayer [] Reads Bible or Jainism materials [] There are Spiritual issues to be addressed Attendance Secretary Interventions [x] Prayer [] Active listening [] Non-anxious presence [] Spiritual/emotional support [] Crisis/trauma care [] Spiritual counseling [] Bereavement support [] Provided bereavement packet [] Provided Bible/devotional materials [] Provided toy/stuffed animal, coloring book to patient or family member [] Provided Communion [] Anointing/[place] [] Salvation [x] Completed spiritual assessment [] Other: Impact on Illness or Injury [] Angry [] Fearful [] Anxious [] Often cries [] Exhaustion [] Unable to work [] Unable to attend anglican [] Unable to walk/stand [] Unable to read [] Unable to drive [] Unable to eat/drink [] Unable to sleep [] Unable to be with family [] Patient intubated [] Other: Summary Time spent with patient
[2020-05-16] MEDS: metoclopramide 5 mg/mL SDV 2 mL IVP (12:54)
--- NOTE | 2020-05-16 14:46 | PC.NURSE ---
Call to Physician Informed physician of recent BP with MAP less than 65, patient urinating with only approximately 100ml of dark goldie urine, ultrasound at bedside stating that she has 300ML of urine in bladder post void. Telephone order for 500ml bolus, levophed if MAP not increased by bolus, insertion of nolasco catheter
[2020-05-17] VITALS (85 sets, daily range): BP systolic 74–118; BP diastolic 34–73; PULSE 84–115; RESP 13–46; TEMP 36.4–36.7; O2SAT 86–98
[2020-05-17] MEDS: sodium chloride 0.9% 1,000 ML 150 ML IV ×2 (00:06→05:59)
[2020-05-17] MEDS: metoclopramide 5 mg/mL SDV 2 mL IVP (01:00)
[2020-05-17] MEDS: LORazepam 2 mg/mL INJ 1 mL 0.5 MG IVP (02:00)
[2020-05-17 05:04] LABS: Alanine Aminotransferase 127 U/L (0-33); Albumin Level 2.9 g/dL (3.5-5.2); Alkaline Phosphatase 117 IU/L (35-105); Anion Gap 11.7 (5-19); Aspartate Amino Transferase 239 U/L (0-32); Blood Urea Nitrogen 24 mg/dL (8-23); Calcium 7.2 mg/dL (8.5-10.5); Carbon Dioxide 20 mmol/L (22-29); Chloride 116 mmol/L (98-107); Globulin 2.2 g/dL (1.3-4.6); Glucose 89 mg/dL (65-115); Osmolality Calculated 302 mOsm/kg (285-295); Potassium 3.7 mmol/L (3.5-5.1); Sodium 144 mmol/L (136-145); Total Bilirubin 4.6 mg/dL (0.15-1.2); Total Protein 5.1 g/dL (6.6-8.7)
[2020-05-17] MEDS: levothyroxine 150 mcg Tablet 75 MCG PO (05:59)
--- NOTE | 2020-05-17 07:14 | CT_ITS ---
WS: [id number] CT ABDOMEN AND PELVIS WITH CONTRAST HISTORY: elevated LFT's TECHNIQUE: Imaging performed of the abdomen and pelvis with IV contrast. Single phase imaging of the abdomen. Coronal and sagittal reformats are submitted. All CT scans at [facility] use at least one of these dose optimization techniques: automated exposure control; mA and/or kV adjustment per patient size (includes targeted exams where dose is matched to clinical indication); or iterativ e reconstruction. IV CONTRAST: Omnipaque 300; 95 mL IV. Oral contrast: No DLP: 806.94 mGy.cm COMPARISON: None available. Lower thorax: Small bilateral pleural effusions. Mild enlargement of the heart. Very tiny anterior pe ricardial effusion. Small hiatal hernia. Liver/biliary system: Normal size with no intrahepatic dilatation. Gallbladder: Status post cholecystectomy. Pancreas: Normal. Spleen: Normal. Adrenal glands: Normal. Right kidney: Several cortical hypodensities are too small to characterize. There is no obstruction. Left kidney: Cortical hypodensities. Consistent with cysts. Some are too small to characterize. No ob struction or solid mass. Aorta: Mild atherosclerosis with no aneurysm. Lymphadenopathy: None. Free fluid: There is a very tiny amount of free fluid in the pelvis bilaterally. GI tract: No obstruction. Numerous sigmoid and descending colon diverticula. No evidence for acute di verticulitis. Abdominal wall: Unremarkable abdominal wall. No hernia. Pelvis: Jean-Baptiste catheter present in a nondistended bladder. Prior hysterectomy. Bones: Mild increase in the lumbar lordosis. CT/CT abdomen pelvis w con* [id number] IMPRESSION: 1. Small bilateral pleural effusions. 2. Very small amount of free fluid in the pelvis of uncertain etiology. 3. Prior cholecystectomy and hysterectomy. 4. Sigmoid diverticulosis without acute diverticulitis. 5. No hepatic biliary dilatation.
--- NOTE | 2020-05-17 07:30 | USCV_ITS ---
Cheryl Hector Age: 79 Gender: F : 1940 Exam Date: 05/17/2020 13:11 Ordering Phys: Tomer Gu MD Technologist: Jesse Snell [place] [facility] [place]: HYPOTENSION BP: 93 / 53 HR: 99 Rhythm: Sinus Technical Quality: Good MEASUREMENTS (Male / Female) Normal Values 2D ECHO LV Diastolic Diameter PLAX 3.7 cm 4.2 - 5.9 / 3.9 - 5.3 cm LV Systolic Diameter PLAX 2.5 cm IVS Diastolic Thickness 1.6 cm 0.6 - 1.0 / 0.6 - 0.9 cm IVS Systolic Thickness 1.7 cm LVPW Diastolic Thickness 0.9 cm 0.6 - 1.0 / 0.6 - 0.9 cm LVPW Systolic Thickness 1.3 cm LVOT Diameter 2.0 cm LV Ejection Fraction 2D Teich 62.9 % LV Ejection Fraction MOD 2C 72.8 % LV Ejection Fraction 2C AL 74.2 % LA Diameter 2.9 cm LA Width 3.6 cm LA Height 5.0 cm RA Width 2.9 cm RA Height 4.4 cm Aorta at Sinotubular Diameter 2.0 cm M-MODE LV Diastolic Diameter MM 4.4 cm 4.2 - 5.9 / 3.9 - 5.3 cm LV Systolic Diameter MM 2.7 cm LV Ejection Fraction MM Teich 68.5 % IVS Diastolic Thickness MM 1.5 cm 0.6 - 1.0 / 0.6 - 0.9 cm IVS Systolic Thickness MM 1.7 cm LVPW Diastolic Thickness MM 1.2 cm 0.6 - 1.0 / 0.6 - 0.9 cm LVPW Systolic Thickness MM 1.8 cm Aortic Annulus Diameter 3.0 cm LA Ao Ratio MM 1.1 MV E Point Septal Separation 0.6 cm DOPPLER AV Peak Velocity 172.0 cm/s LVOT Peak Velocity 110.0 cm/s AV Area Cont Eq vti 1.9 cm squared AV Area Cont Eq pk 1.9 cm squared MV Area PHT 4.1 cm squared Mitral E to A Ratio 1.1 MV E' Velocity 63.0 cm/s Mitral E to MV E' Ratio 10.8 Mitral E to LV E' Lateral Ratio 9.8 Mitral E to LV E' Septal Ratio 12.1 TR Peak Velocity 382.0 cm/s TR Peak Gradient 58.4 mmHg TV Peak E Velocity 123.0 cm/s Right Atrial Pressure 3.0 mmHg Pulmonary Artery Systolic Pressu 61.4 mmHg FINDINGS Left Ventricle Normal left ventricular cavity size. Normal left ventricular systolic function. Left ventricular ejection fraction is estimated at 70 %. No regional wall motion abnormalities. Normal diastolic function. Right Ventricle Normal right ventricular size and systolic function. Right ventricular systolic pressure 36 mmHg. Right Atrium Normal right atrial size. Left Atrium Upper normal left atrial size. Mitral Valve Moderate mitral annular calcification. No mitral valve stenosis. Mild mitral valve regurgitation. Aortic Valve Structurally normal trileaflet aortic valve. No aortic valve stenosis. No aortic valve regurgitation. Tricuspid Valve No tricuspid valve stenosis. Trace to mild tricuspid valve regurgitation. Pulmonic Valve Structurally normal pulmonic valve. No pulmonary valve stenosis. Trace pulmonary valve regurgitation. Pericardium Aorta Normal size aortic root and proximal ascending aorta. CONCLUSIONS 1. Normal left ventricular cavity size. Normal left ventricular systolic function. Left ventricular ejection fraction is estimated at 70 %. No regional wall motion abnormalities. Normal diastolic function. 2. Normal right ventricular size and systolic function. 3. Upper normal pulmonary artery pressure measured at 36 mmHg. 4. Mild mitral valve regurgitation. 5. No prior similar studies to compare. Faith Dior MD (Electronically Signed) Final Date: 17 May 2020 18:08 S
[2020-05-17] MEDS: piperacillin-tazobactam 3.375 GM in sodium chloride 0.9% (plus) 50 ML IV ×3 (07:40→23:19)
[2020-05-17 07:52] LABS: Basophils # 0.1 10^3/uL (0.0-0.1); Basophils % 0.4 %; Eosinophils % 0.1 %; Hematocrit 35.6 % (37.0-47.0); Lymphocytes # 0.5 10^3/uL (0.8-4.8); Lymphocytes % 2.1 %; Mean Corpuscular HGB Conc 30.9 g/dL (30.0-36.0); Mean Corpuscular Hemoglobin 29.5 pg (28.0-34.0); Mean Corpuscular Volume 95.4 fL (81-99); Mean Platelet Volume 11.4 fL (7.4-10.4); Monocytes # 0.2 10^3/uL (0.2-0.9); Monocytes % 0.9 %; Neutrophils # 21.93 10^3/uL (1.8-7.7); Neutrophils % 90.9 %; Nucleated Red Blood Cells % 0 %; Platelet Count 85 10^3/cmm (130-400); Red Blood Count 3.73 10^6/uL (4.1-5.3); Red Cell Distribution Width 14.4 % (12.1-15.1); White Blood Count 24.1 10^3/uL (4.0-10.0)
[2020-05-17 07:57] LABS: Slide Review Slide Review Perform
[2020-05-17] MEDS: iohexol 300 mg/mL 100 mL Btl IV (08:21)
--- NOTE | 2020-05-17 09:15 | PC.CHAP ---
Pastoral Care Encounter/Spiritual Assessment Type of Contact [] Declined costume specialist visit [] Patient/Family/Request visit [] Outpatient visit [] Follow-up visit [] Physician referral [] Code/Alert [] Routine visit [] Staff referral [] Actively dying [] Patient sleeping [] Family support [] [] Out of room [] Palliative care [] [] Receiving care in room [] Pre-surgical visit [] Trauma [] Long length of stay [x] ICU visit [] Other: Relational/Emotional Strength [] Patient feels connected with others/family/visitors/staff [] Distress [] Loneliness/isolation [] Abandonment Spirituality of Patient [] Person of Sophia [] Attends Quaker of their Sophia [] Believes in Prayer [] Reads Bible or Samaritan materials [] There are Spiritual issues to be addressed Custom Leather Products Maker Interventions [x] Prayer [] Active listening [] Non-anxious presence [] Spiritual/emotional support [] Crisis/trauma care [] Spiritual counseling [] Bereavement support [] Provided bereavement packet [] Provided Bible/devotional materials [] Provided toy/stuffed animal, coloring book to patient or family member [] Provided Communion [] Anointing/[place] [] Salvation [x] Completed spiritual assessment [] Other: Impact on Illness or Injury [] Angry [] Fearful [] Anxious [] Often cries [] Exhaustion [] Unable to work [] Unable to attend jainism [] Unable to walk/stand [] Unable to read [] Unable to drive [] Unable to eat/drink [] Unable to sleep [] Unable to be with family [] Patient intubated [] Other: Summary Time spent with patient
[2020-05-17] MEDS: vancomycin 1,250 MG/250 ML PIGGYBACK 200 MG IV (09:30)
[2020-05-17] MEDS: pantoprazole DR 40 mg Tablet PO (09:34)
[2020-05-17] MEDS: enoxaparin 40 mg/0.4 mL Syringe SUBCUT (09:35)
[2020-05-17] MEDS: FUROsemide 10 mg/mL SDV 2mL 20 MG IVP ×2 (10:44→18:08)
[2020-05-17 11:38] LABS: Hepatitis A Antibody IgM Non-Reactive (Nonreactive); Hepatitis B Core IgM Non-Reactive (Nonreactive); Hepatitis B Surface Antigen Non-Reactive (Nonreactive); Hepatitis C Virus Antibody Non-Reactive (Nonreactive)
--- NOTE | 2020-05-17 12:51 | P.PN_ITS ---
Subjective Subjective: Interval history: Cheryl reported she has some shortness of breath this morning. No chest discomfort. No abdominal pain. Nausea seems to have improved. She required norepinephrine during the night Medications: Reviewed: Yes Vitals/I&O/Wt Last Vital Signs Temp 97.6 F 05/16/20 19:00 Pulse 96 05/17/20 12:15 Resp 40 H 05/17/20 12:15 BP 93/53 05/17/20 12:15 Pulse Ox 95 05/17/20 12:15 05/16/20 05/17/20 05/17/20 22:59 06:59 14:59 Intake Total 1476.433 / 2026.433 1492.95 / 3519.383 345 / 345 Output Total 700 / 700 300 / 1000 Balance 776.433 / 1108.115 1512.95 / 2519.383 345 / 345 Weight last 48 hrs Weight 75.296 kg Weight 70.307 kg Physical Exam Narrative: EXAM NARRATIVE: General exam is a white female, Neck is supple no lymphadenopathy or thyromegaly Cardiovascular regular rate and rhythm without murmur, no S3 or S4 Lungs crackles bibasilar Abdomen is soft nontender with positive bowel sounds Extremities no cyanosis clubbing or edema, cap refill less than 2 seconds Urinary Catheter Management^: Jean-Baptiste Latex Free: Cath Placed During This Visit: yes Reason for Continuing Indwelling Catheter: Accurate Measurement of Urinary Output in Critically Ill Patients Urinary Catheter Date of Insertion: 05/16/20 Urinary Catheter Time of Insertion: 15:10 Data : 05/17/20 07:30 05/17/20 03:50 Micro: Microbiology 05/16/20 07:39 Blood Culture - Preliminary Blood NEGATIVE TO DATE 05/16/20 07:39 Blood Culture - Preliminary Blood NEGATIVE TO DATE A&P Assessment and plan (1) Sepsis secondary to UTI: Admission to ICU initially secondary to sepsis initially Required norepinephrine through the night but now off Significant fluid resuscitation occurred yesterday and she is positive at least 2500 cc Now she has some evidence of fluid overload with tachypnea, crackles. Will discontinue IV fluids, Lasix 20 mg IV x1. Monitor blood pressure closely. Blood and urine cultures pending Secondary to increase in LFTs and bilirubin will check CT abdomen and pelvis. Expand coverage to Zosyn and vancomycin currently. Status: Acute (2) UTI (urinary tract infection): See orders for antibiotic above Renal ultrasound demonstrated some urinary retention but no evidence of hydronephrosis Status: Acute (3) Leukopenia: Likely secondary to sepsis Now with leukocytosis as expected with sepsis Now with thrombocytopenia. May indicate some element of DIC. Continue Lovenox currently but would consider discontinuation if platelet count less than 70,000 Status: Acute (4) Hypothyroidism: TSH was checked and normal Status: Acute Additional A&P Information Transaminitis. Likely secondary to sepsis. Check CT abdomen and pelvis. Check hepatitis panel. History of insomnia, continue patient's home Ambien Full code Lovenox for DVT prophylaxis Initiate clear liquid diet Attestations Medical Necessity Statement*: Needs continued hospitalization for IV antibiotics secondary to sepsis Critical Care Time: 32 minutes spent in critical care time at bedside, discussing with patient, reviewing laboratory, formulating plan in this patient with sepsis and septic shock requiring norepinephrine at times now with some evidence of fluid overload with high risk for decompensation. Coding Level of Care Code Acute Supplier Diversity Director for [employer] Fwd Diagnoses Sepsis secondary to UTI A41.9; N39.0 UTI (urinary tract infection) N39.0 Leukopenia D72.819 Hypothyroidism E03.9
[2020-05-17] MEDS: acetaminophen 325 mg Tablet 650 MG PO ×2 (13:44→23:19)
[2020-05-18] VITALS (48 sets, daily range): BP systolic 82–125; BP diastolic 42–83; PULSE 71–94; RESP 13–41; TEMP 36.8–36.9; O2SAT 87–99
[2020-05-18] MEDS: levothyroxine 150 mcg Tablet 75 MCG PO (05:55)
[2020-05-18] MEDS: acetaminophen 325 mg Tablet 650 MG PO ×3 (06:00→16:47)
[2020-05-18 07:31] LABS: Basophils % 0.1 %; Hematocrit 31.7 % (37.0-47.0); Hemoglobin 9.9 g/dL (11.5-15.3); Lymphocytes # 0.9 10^3/uL (0.8-4.8); Mean Corpuscular HGB Conc 31.2 g/dL (30.0-36.0); Mean Corpuscular Hemoglobin 29.6 pg (28.0-34.0); Mean Corpuscular Volume 94.6 fL (81-99); Mean Platelet Volume 12.4 fL (7.4-10.4); Monocytes # 0.6 10^3/uL (0.2-0.9); Monocytes % 2.5 %; Neutrophils # 20.26 10^3/uL (1.8-7.7); Neutrophils % 90.7 %; Nucleated Red Blood Cells % 0 %; Platelet Count 68 10^3/cmm (130-400); Red Blood Count 3.35 10^6/uL (4.1-5.3); Red Cell Distribution Width 14.6 % (12.1-15.1); White Blood Count 22.3 10^3/uL (4.0-10.0)
[2020-05-18 07:57] LABS: Alanine Aminotransferase 118 U/L (0-33); Albumin Level 2.8 g/dL (3.5-5.2); Alkaline Phosphatase 231 IU/L (35-105); Anion Gap 14.4 (5-19); Aspartate Amino Transferase 94 U/L (0-32); Blood Urea Nitrogen 29 mg/dL (8-23); Calcium 7.7 mg/dL (8.5-10.5); Carbon Dioxide 20 mmol/L (22-29); Chloride 114 mmol/L (98-107); Globulin 2.5 g/dL (1.3-4.6); Glucose 52 mg/dL (65-115); Osmolality Calculated 303 mOsm/kg (285-295); Potassium 3.4 mmol/L (3.5-5.1); Sodium 145 mmol/L (136-145); Total Bilirubin 2.4 mg/dL (0.15-1.2); Total Protein 5.3 g/dL (6.6-8.7)
[2020-05-18] MEDS: pantoprazole DR 40 mg Tablet PO (08:59)
[2020-05-18] MEDS: piperacillin-tazobactam 3.375 GM in sodium chloride 0.9% (plus) 50 ML IV ×3 (08:59→23:49)
[2020-05-18 09:16] LABS: Slide Review Slide Review Perform
[2020-05-18] MEDS: vancomycin 1,250 MG/250 ML PIGGYBACK 200 MG IV (09:57)
[2020-05-18] MEDS: promethazine 25 mg/mL SDV 1 mL IM (14:51)
--- NOTE | 2020-05-18 15:01 | P.PN_ITS ---
Subjective Subjective: Interval history: Patient reports feeling better today. Denies any uncontrolled pain. No fevers or chills. No chest pain, shortness of breath, cough, palpitations. No signs of bleeding. Medications: Reviewed: Yes Medication Review Details: Generic Name Dose Route Start Last Admin Trade Name Freq PRN Reason Stop Dose Admin Acetaminophen 650 mg 05/16/20 09:59 05/18/20 11:31 Acetaminophen 32 5 Mg Tablet PO 650 mg Q6H PRN Administration MILD PAIN Norepinephrine Bit artrate 4 mg 254 mls @ 0 mls/h r 05/16/20 15:00 05/17/20 04:30 / Dextrose IV 0 mcg/min .Q0M DUY 0 mls/hr Titration Protocol Per Protocol Piperacillin Sod/T azobactam 50 mls @ 12.5 mls /hr 05/17/20 08:00 05/18/20 14:39 Sod 3.375 gm/ So dium Chloride IV Infused Q8H DUY Infusion Protocol Vancomycin/PEG/NAD A/Lysine/Water 1,250 mg in 250 m ls @ 200 mls/hr 05/17/20 09:00 05/18/20 14:40 Vancocin IV Infused Q24H DUY Infusion Levothyroxine Sodi um 75 mcg 05/17/20 06:00 05/18/20 05:55 Levothyroxine 15 0 Mcg Tablet PO 75 mcg DAILY@06 DUY Administration Metoclopramide HCl 5 mg 05/16/20 10:00 05/17/20 01:00 Metoclopramide 5 Mg/Ml Sdv 2 Ml IVP 5 mg Q6H PRN Administration NAUSEA AND VOMITI NG Ondansetron HCl 4 mg 05/16/20 09:59 05/16/20 17:09 Ondansetron 2 Mg /Ml Sdv 2 Ml IVP 4 mg Q6H PRN Administration NAUSEA AND VOMITI NG Pantoprazole Sodiu m 40 mg 05/17/20 09:00 05/18/20 08:[address] 40 Mg Tablet PO 40 mg DAILY DUY Administration Promethazine HCl 25 mg 05/16/20 10:00 05/18/20 14:51 Promethazine 25 Mg/Ml Sdv 1 Ml IM 25 mg Q6H PRN Administration NAUSEA Zolpidem Tartrate 10 mg 05/16/20 09:59 05/17/20 18:13 Zolpidem 10 Mg T ablet PO 10 mg BEDTIME PRN Administration Sleep Vitals/I&O/Wt Last Vital Signs Temp 98.2 F 05/18/20 08:30 Pulse 76 05/18/20 14:00 Resp 24 H 05/18/20 14:00 BP 110/43 05/18/20 14:00 Pulse Ox 94 05/18/20 14:00 05/18/20 05/18/20 05/18/20 06:59 14:59 22:59 Intake Total 50 / 1045 950 / 950 Output Total 500 / 2450 Balance -450 / -1405 950 / 950 Weight last 48 hrs Weight 71.668 kg Weight 75.296 kg Physical Exam Narrative: EXAM NARRATIVE: Awake alert oriented. No acute distress. Mood and affect are appropriate. Responses are adequate. Skin warm and dry. Moist mucous nares. Neck supple. No JVD Lungs clear bilaterally.No respiratory distress Heart S1, S2, regular Abdomen is soft, nontender, bowel sounds are present Extremities no edema cyanosis or calf tenderness bilaterally Urinary Catheter Management^: Jean-Baptiste Latex Free: Cath Placed During This Visit: yes Reason for Continuing Indwelling Catheter: Accurate Measurement of Urinary Output in Critically Ill Patients Urinary Catheter Date of Insertion: 05/16/20 Urinary Catheter Time of Insertion: 15:10 Data : 05/18/20 04:57 05/18/20 04:57 Micro: Microbiology 05/18/20 09:08 Blood Culture - Preliminary Blood SPECIMEN COLLECTED 05/16/20 08:25 Urine Culture - Final Urine Catheterized Escherichia coli 05/18/20 04:57 Blood Culture - Preliminary Blood SPECIMEN COLLECTED 05/16/20 07:39 Blood Culture - Preliminary Blood Gram Negative Rods A&P Additional A&P Information (1) Sepsis secondary to UTI: Admission to ICU initially secondary to sepsis initially Required norepinephrine through the night but now off Significant fluid resuscitation occurred yesterday and she is positive at least 2500 cc Now she has some evidence of fluid overload with tachypnea, crackles. Will discontinue IV fluids, Lasix 20 mg IV x1. Monitor blood pressure closely. Blood and urine cultures pending Secondary to increase in LFTs and bilirubin will check CT abdomen and pelvis. Expand coverage to Zosyn and vancomycin currently. Status: Acute (2) UTI (urinary tract infection): See orders for antibiotic above Renal ultrasound demonstrated some urinary retention but no evidence of hydronephrosis Status: Acute (3) Leukopenia: Likely secondary to sepsis Now with leukocytosis as expected with sepsis Now with thrombocytopenia. May indicate some element of DIC. Continue Lovenox currently but would consider discontinuation if platelet count less than 70,000 Status: Acute (4) Hypothyroidism: TSH was checked and normal Status: Acute 05/18 [place] Sepsis and septic shock secondary to urinary tract infection. Stable. Continue Zosyn and vancomycin. Waiting for the culture results. Fluid overload. Resolved. Continue hydration with oral fluids. Avoid IV fluids if possible. Thrombocytopenia. Has worsened. We will stop Lovenox and order HIT screening test. DVT prophylaxis. Teds and SCDs for now. Elevated LFTs. Probably secondary to sepsis. Monitor. Anemia. Stable. Acute kidney injury. Mild. Monitor. Hypokalemia. Replace and monitor. The plan of care was discussed with the multidisciplinary team and the patient. They verbalized understanding and agreement. Attestations Medical Necessity Statement*: Still requires IV antibiotics and close monitoring in ICU settings. Coding Level of Care Code Acute Predictive Maintenance Specialist for Afshin Valencia
[2020-05-18] MEDS: TRAMadol 50 mg Tablet PO (16:52)
[2020-05-18] MEDS: metoclopramide 5 mg/mL SDV 2 mL IVP (16:58)
[2020-05-19] VITALS (25 sets, daily range): BP systolic 108–153; BP diastolic 53–83; PULSE 67–91; RESP 16–35; TEMP 36.7; O2SAT 91–97
[2020-05-19 04:10] LABS: Basophils # 0.2 10^3/uL (0.0-0.1); Basophils % 0.8 %; Eosinophils # 0.2 10^3/uL (0.0-0.8); Eosinophils % 0.8 %; Hematocrit 30.3 % (37.0-47.0); Hemoglobin 9.7 g/dL (11.5-15.3); Lymphocytes # 1.5 10^3/uL (0.8-4.8); Lymphocytes % 6.3 %; Mean Corpuscular Hemoglobin 29.3 pg (28.0-34.0); Mean Corpuscular Volume 91.5 fL (81-99); Mean Platelet Volume 12.5 fL (7.4-10.4); Monocytes # 0.8 10^3/uL (0.2-0.9); Monocytes % 3.5 %; Nucleated Red Blood Cells % 0 %; Platelet Count 73 10^3/cmm (130-400); Red Blood Count 3.31 10^6/uL (4.1-5.3); Red Cell Distribution Width 14.2 % (12.1-15.1); White Blood Count 23.1 10^3/uL (4.0-10.0)
[2020-05-19 04:16] LABS: Alanine Aminotransferase 78 U/L (0-33); Albumin Level 2.7 g/dL (3.5-5.2); Alkaline Phosphatase 154 IU/L (35-105); Anion Gap 10.9 (5-19); Aspartate Amino Transferase 40 U/L (0-32); Blood Urea Nitrogen 23 mg/dL (8-23); Calcium 8.1 mg/dL (8.5-10.5); Carbon Dioxide 22 mmol/L (22-29); Chloride 109 mmol/L (98-107); Globulin 2.4 g/dL (1.3-4.6); Glucose 81 mg/dL (65-115); Magnesium 1.9 mg/dL (1.7-2.3); Osmolality Calculated 291 mOsm/kg (285-295); Sodium 139 mmol/L (136-145); Total Bilirubin 1.4 mg/dL (0.15-1.2); Total Protein 5.1 g/dL (6.6-8.7)
[2020-05-19 04:19] LABS: Potassium 2.9 mmol/L (3.5-5.1)
[2020-05-19] MEDS: levothyroxine 150 mcg Tablet 75 MCG PO (06:10)
[2020-05-19] MEDS: pantoprazole DR 40 mg Tablet PO (08:09)
[2020-05-19] MEDS: piperacillin-tazobactam 3.375 GM in sodium chloride 0.9% (plus) 50 ML IV (08:09)
[2020-05-19 08:46] LABS: Vancomycin Trough 9.8 ug/mL (10-15)
[2020-05-19 09:00] LABS: Procalcitonin 9.34 ng/mL (0-0.5)
[2020-05-19 09:10] LABS: C Reactive Protein 126.1 mg/L (0.0-4.9)
--- NOTE | 2020-05-19 09:20 | PC.SOCIAL ---
IMM Page 2 of IMM explained to patient. Initialed, dated and timed and placed in chart. Copy provided to patient.
[2020-05-19] MEDS: cefTRIAXone 2,000 MG in sodium chloride 0.9% (plus) 50 ML 100 MG IV (10:14)
[2020-05-19 10:58] LABS: Urine Appearance Clear (CLEAR); Urine Color Dark Yellow (Yellow)
[2020-05-19 10:59] LABS: Add Urine Culture? Yes; Add Urine Microscopic? YES; Bacteria Urine TRACE /hpf; Bilirubin Urine Neg (Negative); Blood Urine 3+ (Negative); Glucose Urine UA Norm (Normal); Ketones Urine 1+ (Negative); Leukocyte Esterase Urine Negative (Negative); Nitrate Urine Negative (Negative); Protein Urine Trace (Negative); RBC Urine 15-25 /hpf (0-2); Specific Gravity, Urine 1.015 (1.005-1.030); Squamous Epithelial Cell Urine 0-4 /hpf (0-5); Urobilinogen Urine 4 mg/dL (Negative); WBC Urine 0-4 /hpf (0-5); pH Urine 6 (5-7)
[2020-05-19] MEDS: lidocaine 1% INJ 20 mL 5 ML IV (11:31)
--- NOTE | 2020-05-19 11:55 | P.PN_ITS ---
Subjective Subjective: Interval history: Patient reports feeling better and stronger. Denies fevers or chills, nausea or vomiting, diarrhea, abdominal pain, back pain. Reports good appetite. Vitals/I&O/Wt Last Vital Signs Temp 98.5 F 05/18/20 19:00 Pulse 71 05/19/20 11:00 Resp 29 H 05/19/20 11:00 BP 135/63 05/19/20 10:00 Pulse Ox 91 05/19/20 11:00 05/18/20 05/19/20 05/19/20 22:59 06:59 14:59 Intake Total 350 / 1300 50 / 1350 Output Total 675 / 675 150 / 825 175 / 175 Balance -325 / 625 -100 / 525 -175 / -175 Weight last 48 hrs Weight 71.668 kg Weight 71.668 kg Physical Exam Narrative: EXAM NARRATIVE: Awake alert oriented. No acute distress. Mood and affect are appropriate. Responses are adequate. Skin warm and dry. Moist mucous nares. Neck supple. No JVD Lungs clear bilaterally.No respiratory distress Heart S1, S2, regular Abdomen is soft, nontender, bowel sounds are present Extremities no edema cyanosis or calf tenderness bilaterally Urinary Catheter Management^: Jean-Baptiste Latex Free: Cath Placed During This Visit: yes Reason for Continuing Indwelling Catheter: Accurate Measurement of Urinary Output in Critically Ill Patients Urinary Catheter Date of Insertion: 05/16/20 Urinary Catheter Time of Insertion: 15:10 Data : 05/19/20 03:21 05/19/20 03:21 Micro: Microbiology 05/16/20 07:39 Blood Culture - Preliminary Blood Escherichia coli 05/16/20 07:39 Blood Culture - Preliminary Blood Escherichia coli 05/18/20 04:57 Blood Culture - Preliminary Blood NEGATIVE TO DATE 05/18/20 09:08 Blood Culture - Preliminary Blood SPECIMEN COLLECTED 05/16/20 08:25 Urine Culture - Final Urine Catheterized Escherichia coli A&P Assessment and plan (1) Sepsis secondary to UTI: Admission to ICU initially secondary to sepsis initially Required norepinephrine through the night but now off Significant fluid resuscitation occurred yesterday and she is positive at least 2500 cc Now she has some evidence of fluid overload with tachypnea, crackles. Will discontinue IV fluids, Lasix 20 mg IV x1. Monitor blood pressure closely. Blood and urine cultures pending Secondary to increase in LFTs and bilirubin will check CT abdomen and pelvis. Expand coverage to Zosyn and vancomycin currently. Status: Acute (2) UTI (urinary tract infection): See orders for antibiotic above Renal ultrasound demonstrated some urinary retention but no evidence of hydronephrosis Status: Acute (3) Leukopenia: Likely secondary to sepsis Now with leukocytosis as expected with sepsis Now with thrombocytopenia. May indicate some element of DIC. Continue Lovenox currently but would consider discontinuation if platelet count less than 70,000 Status: Acute (4) Hypothyroidism: TSH was checked and normal Status: Acute Additional A&P Information (1) Sepsis secondary to UTI: Admission to ICU initially secondary to sepsis initially Required norepinephrine through the night but now off Significant fluid resuscitation occurred yesterday and she is positive at least 2500 cc Now she has some evidence of fluid overload with tachypnea, crackles. Will discontinue IV fluids, Lasix 20 mg IV x1. Monitor blood pressure closely. Blood and urine cultures pending Secondary to increase in LFTs and bilirubin will check CT abdomen and pelvis. Expand coverage to Zosyn and vancomycin currently. Status: Acute (2) UTI (urinary tract infection): See orders for antibiotic above Renal ultrasound demonstrated some urinary retention but no evidence of hydronephrosis Status: Acute (3) Leukopenia: Likely secondary to sepsis Now with leukocytosis as expected with sepsis Now with thrombocytopenia. May indicate some element of DIC. Continue Lovenox currently but would consider discontinuation if platelet count less than 70,000 Status: Acute (4) Hypothyroidism: TSH was checked and normal Status: Acute 05/19 [place] Sepsis and septic shock secondary to urinary tract infection. Stable. However I am concerned about persistent leukocytosis. Has associated gram-negative bacteremia. Sensitivity results are pending. We will stop Zosyn and order Rocephin IV based on urine culture sensitivities. We will recheck her CBC in the morning. Jean-Baptiste is in and the urine seems to be clear. Fluid overload. Resolved. Continue hydration with oral fluids. Avoid IV fluids if possible. Thrombocytopenia. Little better today. Lovenox is stopped. HIT screening test is pending. DVT prophylaxis. Teds and SCDs for now. Elevated LFTs. Probably secondary to sepsis. Monitor. Anemia. Stable. Acute kidney injury. Mild. Resolved. Monitor. Hypokalemia. Replace and monitor. The plan of care was discussed with the multidisciplinary team and the patient. They verbalized understanding and agreement. Attestations Medical Necessity Statement*: Still requires IV antibiotics and follow-up blood tests. Coding Level of Care Code Acute Receptionist Secretary for g Fwd Diagnoses Sepsis secondary to UTI A41.9; N39.0 UTI (urinary tract infection) N39.0 Leukopenia D72.819 Hypothyroidism E03.9
[2020-05-19] MEDS: vancomycin 1,500 MG/300 ML PIGGYBACK 200 MG IV (13:07)
[2020-05-19] MEDS: potassium chloride ER 20 mEq Tablet 40 MEQ PO (16:07)
[2020-05-19] MEDS: acetaminophen 325 mg Tablet 650 MG PO (19:54)
[2020-05-19] MEDS: TRAMadol 50 mg Tablet PO (22:37)
[2020-05-20] VITALS (25 sets, daily range): BP systolic 123–141; BP diastolic 55–72; PULSE 65–78; RESP 20–32; TEMP 36.5–36.9; O2SAT 88–96
[2020-05-20 04:29] LABS: Basophils # 0.1 10^3/uL (0.0-0.1); Basophils % 0.7 %; Eosinophils # 0.8 10^3/uL (0.0-0.8); Eosinophils % 4.3 %; Hematocrit 30.2 % (37.0-47.0); Hemoglobin 9.8 g/dL (11.5-15.3); Lymphocytes # 2.1 10^3/uL (0.8-4.8); Lymphocytes % 11.7 %; Mean Corpuscular HGB Conc 32.5 g/dL (30.0-36.0); Mean Corpuscular Hemoglobin 29.2 pg (28.0-34.0); Mean Corpuscular Volume 89.9 fL (81-99); Mean Platelet Volume 12.3 fL (7.4-10.4); Monocytes # 1.8 10^3/uL (0.2-0.9); Monocytes % 10.3 %; Neutrophils # 11.91 10^3/uL (1.8-7.7); Neutrophils % 67.9 %; Nucleated Red Blood Cells % 0.1 %; Platelet Count 82 10^3/cmm (130-400); Red Blood Count 3.36 10^6/uL (4.1-5.3); Red Cell Distribution Width 13.9 % (12.1-15.1); White Blood Count 17.5 10^3/uL (4.0-10.0)
[2020-05-20 04:54] LABS: Procalcitonin 3.93 ng/mL (0-0.5)
[2020-05-20 05:00] LABS: Slide Review Slide Review Perform
[2020-05-20 05:08] LABS: Alanine Aminotransferase 52 U/L (0-33); Albumin Level 2.9 g/dL (3.5-5.2); Alkaline Phosphatase 160 IU/L (35-105); Anion Gap 12.2 (5-19); Aspartate Amino Transferase 18 U/L (0-32); Blood Urea Nitrogen 15 mg/dL (8-23); Calcium 7.9 mg/dL (8.5-10.5); Carbon Dioxide 22 mmol/L (22-29); Chloride 113 mmol/L (98-107); Globulin 2.4 g/dL (1.3-4.6); Glucose 89 mg/dL (65-115); Magnesium 1.8 mg/dL (1.7-2.3); Osmolality Calculated 298 mOsm/kg (285-295); Potassium 3.2 mmol/L (3.5-5.1); Sodium 144 mmol/L (136-145); Total Bilirubin 0.8 mg/dL (0.15-1.2); Total Protein 5.3 g/dL (6.6-8.7)
[2020-05-20] MEDS: levothyroxine 150 mcg Tablet 75 MCG PO (05:57)
[2020-05-20] MEDS: pantoprazole DR 40 mg Tablet PO (08:06)
[2020-05-20] MEDS: cefTRIAXone 2,000 MG in sodium chloride 0.9% (plus) 50 ML 100 MG IV (08:06)
--- NOTE | 2020-05-20 09:34 | PC.CHAP ---
Pastoral Care Encounter/Spiritual Assessment Type of Contact [] Declined embroidery specialist visit [] Patient/Family/Request visit [] Outpatient visit [] Follow-up visit [] Physician referral [] Code/Alert [] Routine visit [] Staff referral [] Actively dying [] Patient sleeping [] Family support [] [] Out of room [] Palliative care [] [] Receiving care in room [] Pre-surgical visit [] Trauma [] Long length of stay [x] ICU visit [] Other: Relational/Emotional Strength [] Patient feels connected with others/family/visitors/staff [] Distress [] Loneliness/isolation [] Abandonment Spirituality of Patient [] Person of Sophia [] Attends Anabaptism of their Sophia [] Believes in Prayer [] Reads Bible or Druze materials [] There are Spiritual issues to be addressed Formula Checker Interventions [x] Prayer [] Active listening [] Non-anxious presence [] Spiritual/emotional support [] Crisis/trauma care [] Spiritual counseling [] Bereavement support [] Provided bereavement packet [] Provided Bible/devotional materials [] Provided toy/stuffed animal, coloring book to patient or family member [] Provided Communion [] Anointing/Premier [] Salvation [x] Completed spiritual assessment [] Other: Impact on Illness or Injury [] Angry [] Fearful [] Anxious [] Often cries [] Exhaustion [] Unable to work [] Unable to attend congregational [] Unable to walk/stand [] Unable to read [] Unable to drive [] Unable to eat/drink [] Unable to sleep [] Unable to be with family [] Patient intubated [] Other: Summary Time spent with patient
[2020-05-20] MEDS: potassium chloride ER 20 mEq Tablet 40 MEQ PO (10:02)
[2020-05-20] MEDS: FUROsemide 20 mg Tablet PO (10:02)
[2020-05-20 10:23] LABS: C Reactive Protein 50.4 mg/L (0.0-4.9)
--- NOTE | 2020-05-20 11:55 | P.PN_ITS ---
Subjective Subjective: Interval history: Patient reports feeling much better. Denies fever or chills, abdominal or back pain, dysuria, nausea or vomiting, chest pain, shortness of breath, cough, palpitations. Medications: Reviewed: Yes Medication Review Details: Generic Name Dose Route Start Last Admin Trade Name Freq PRN Reason Stop Dose Admin Acetaminophen 650 mg 05/16/20 09:59 05/19/20 19:54 Acetaminophen 32 5 Mg Tablet PO 650 mg Q6H PRN Administration MILD PAIN Norepinephrine Bit artrate 4 mg 254 mls @ 0 mls/h r 05/16/20 15:00 05/17/20 04:30 / Dextrose IV 0 mcg/min .Q0M DUY 0 mls/hr Titration Protocol Per Protocol Ceftriaxone Sodium 2,000 mg/ 50 mls @ 100 mls/ hr 05/19/20 09:00 05/20/20 09:01 Sodium Chloride IV Infused Q24H DUY Infusion Protocol Levothyroxine Sodi um 75 mcg 05/17/20 06:00 05/20/20 05:57 Levothyroxine 15 0 Mcg Tablet PO 75 mcg DAILY@06 DUY Administration Metoclopramide HCl 5 mg 05/16/20 10:00 05/18/20 16:58 Metoclopramide 5 Mg/Ml Sdv 2 Ml IVP 5 mg Q6H PRN Administration NAUSEA AND VOMITI NG Ondansetron HCl 4 mg 05/16/20 09:59 05/16/20 17:09 Ondansetron 2 Mg /Ml Sdv 2 Ml IVP 4 mg Q6H PRN Administration NAUSEA AND VOMITI NG Pantoprazole Sodiu m 40 mg 05/17/20 09:00 05/20/20 08:[address] 40 Mg Tablet PO 40 mg DAILY DUY Administration Promethazine HCl 25 mg 05/16/20 10:00 05/18/20 14:51 Promethazine 25 Mg/Ml Sdv 1 Ml IM 25 mg Q6H PRN Administration NAUSEA Tramadol HCl 50 mg 05/18/20 16:43 05/19/20 22:37 Tramadol 50 Mg T ablet PO 50 mg Q6H PRN Administration HEADACHE Vitals/I&O/Wt Last Vital Signs Temp 97.9 F 05/20/20 04:00 Pulse 74 05/20/20 10:00 Resp 27 H 05/20/20 10:00 BP 133/67 05/20/20 06:00 Pulse Ox 95 05/20/20 10:00 05/19/20 05/20/20 05/20/20 22:59 06:59 14:59 Intake Total 100 / 252 350 / 350 Output Total 250 / 425 600 / 1025 225 / 225 Balance -150 / -173 -600 / -773 125 / 125 Weight last 48 hrs Weight 71.668 kg Weight 71.668 kg Physical Exam Narrative: EXAM NARRATIVE: Awake alert oriented. No acute distress. Mood and affect are appropriate. Responses are adequate. Skin warm and dry. Moist mucous nares. Neck supple. No JVD Lungs clear bilaterally.No respiratory distress Heart S1, S2, regular Abdomen is soft, nontender, bowel sounds are present Extremities no edema cyanosis or calf tenderness bilaterally Urinary Catheter Management^: Jean-Baptiste Latex Free: Cath Placed During This Visit: yes Reason for Continuing Indwelling Catheter: Accurate Measurement of Urinary Output in Critically Ill Patients Urinary Catheter Date of Insertion: 05/16/20 Urinary Catheter Time of Insertion: 15:10 Data : 05/20/20 04:01 05/20/20 04:01 Micro: Microbiology 05/16/20 07:39 Blood Culture - Preliminary Blood Escherichia coli 05/19/20 09:30 Urine Culture - Preliminary Urine,Clean Catch 05/19/20 18:20 Blood Culture - Preliminary Blood SPECIMEN COLLECTED 05/19/20 16:55 Blood Culture - Preliminary Blood SPECIMEN COLLECTED 05/18/20 09:08 Blood Culture - Preliminary Blood NEGATIVE TO DATE 05/16/20 07:39 Blood Culture - Preliminary Blood Escherichia coli 05/18/20 04:57 Blood Culture - Preliminary Blood NEGATIVE TO DATE A&P Assessment and plan (1) Sepsis secondary to UTI: Admission to ICU initially secondary to sepsis initially Required norepinephrine through the night but now off Significant fluid resuscitation occurred yesterday and she is positive at least 2500 cc Now she has some evidence of fluid overload with tachypnea, crackles. Will discontinue IV fluids, Lasix 20 mg IV x1. Monitor blood pressure closely. Blood and urine cultures pending Secondary to increase in LFTs and bilirubin will check CT abdomen and pelvis. Expand coverage to Zosyn and vancomycin currently. Status: Acute (2) UTI (urinary tract infection): See orders for antibiotic above Renal ultrasound demonstrated some urinary retention but no evidence of hydronephrosis Status: Acute (3) Leukopenia: Likely secondary to sepsis Now with leukocytosis as expected with sepsis Now with thrombocytopenia. May indicate some element of DIC. Continue Lovenox currently but would consider discontinuation if platelet count less than 70,000 Status: Acute (4) Hypothyroidism: TSH was checked and normal Status: Acute Additional A&P Information (1) Sepsis secondary to UTI: Admission to ICU initially secondary to sepsis initially Required norepinephrine through the night but now off Significant fluid resuscitation occurred yesterday and she is positive at least 2500 cc Now she has some evidence of fluid overload with tachypnea, crackles. Will discontinue IV fluids, Lasix 20 mg IV x1. Monitor blood pressure closely. Blood and urine cultures pending Secondary to increase in LFTs and bilirubin will check CT abdomen and pelvis. Expand coverage to Zosyn and vancomycin currently. Status: Acute (2) UTI (urinary tract infection): See orders for antibiotic above Renal ultrasound demonstrated some urinary retention but no evidence of hydr onephrosis Status: Acute (3) Leukopenia: Likely secondary to sepsis Now with leukocytosis as expected with sepsis Now with thrombocytopenia. May indicate some element of DIC. Continue Lovenox currently but would consider discontinuation if platelet count less than 70,000 Status: Acute (4) Hypothyroidism: TSH was checked and normal Status: Acute 05/19 [place] Sepsis and septic shock with E. coli bacteremia secondary to urinary tract infection. Stable. However I am concerned about persistent leukocytosis. Has associated gram-negative bacteremia. We will continue Rocephin. We will repeat the cultures to confirm clearance. We will transfer her to the floor. Fluid overload. Resolved. Continue hydration with oral fluids. Avoid IV fluids if possible. Thrombocytopenia. Most likely related to infection. Little better today. Lovenox is stopped. HIT screening test is pending. DVT prophylaxis. Teds and SCDs for now. Elevated LFTs. Probably secondary to sepsis. Monitor. Anemia. Stable. Acute kidney injury. Mild. Resolved. Monitor. Hypokalemia. Replace and monitor. The plan of care was discussed with the multidisciplinary team and the patient. They verbalized understanding and agreement. Attestations Medical Necessity Statement*: The plan of care requires inpatient treatments and testing. Coding Level of Care Code Acute Printed Circuit Boards Inspector for [facility] Fwd Diagnoses Sepsis secondary to UTI A41.9; N39.0 UTI (urinary tract infection) N39.0 Leukopenia D72.819 Hypothyroidism E03.9
[2020-05-20] MEDS: TRAMadol 50 mg Tablet PO (17:26)
[2020-05-21] VITALS (11 sets, daily range): BP systolic 99–170; BP diastolic 58–83; PULSE 65–83; RESP 17–20; TEMP 36.5–37.1; O2SAT 93–96
[2020-05-21] MEDS: ondansetron 2 mg/ML SDV 2 mL 4 MG IVP (01:54)
[2020-05-21] MEDS: levothyroxine 150 mcg Tablet 75 MCG PO (06:09)
[2020-05-21 08:24] LABS: Basophils # 0.1 10^3/uL (0.0-0.1); Basophils % 0.5 %; Eosinophils # 0.6 10^3/uL (0.0-0.8); Eosinophils % 4.5 %; Hematocrit 31.9 % (37.0-47.0); Hemoglobin 10.4 g/dL (11.5-15.3); Lymphocytes % 14.3 %; Mean Corpuscular HGB Conc 32.6 g/dL (30.0-36.0); Mean Corpuscular Hemoglobin 28.9 pg (28.0-34.0); Mean Corpuscular Volume 88.6 fL (81-99); Mean Platelet Volume 11.7 fL (7.4-10.4); Monocytes # 1.2 10^3/uL (0.2-0.9); Monocytes % 8.8 %; Neutrophils # 7.01 10^3/uL (1.8-7.7); Neutrophils % 51.5 %; Nucleated Red Blood Cells % 0 %; Platelet Count 117 10^3/cmm (130-400); Red Cell Distribution Width 13.6 % (12.1-15.1); White Blood Count 13.6 10^3/uL (4.0-10.0)
[2020-05-21 08:40] LABS: Albumin Level 2.9 g/dL (3.5-5.2); Anion Gap 11.9 (5-19); Blood Urea Nitrogen 9 mg/dL (8-23); Carbon Dioxide 24 mmol/L (22-29); Chloride 105 mmol/L (98-107); Glucose 93 mg/dL (65-115); Phosphorus 2.1 mg/dL (2.5-4.5); Sodium 138 mmol/L (136-145)
[2020-05-21 08:41] LABS: C Reactive Protein 17.4 mg/L (0.0-4.9); Magnesium 1.8 mg/dL (1.7-2.3)
[2020-05-21 08:52] LABS: Potassium 2.9 mmol/L (3.5-5.1)
[2020-05-21] MEDS: metoclopramide 5 mg/mL SDV 2 mL IVP (08:52)
[2020-05-21] MEDS: pantoprazole DR 40 mg Tablet PO (08:52)
[2020-05-21 09:14] LABS: Slide Review Slide Review Perform
[2020-05-21] MEDS: cefTRIAXone 2,000 MG in sodium chloride 0.9% (plus) 50 ML 100 MG IV (09:16)
--- NOTE | 2020-05-21 10:53 | PC.SOCIAL ---
IMM Update Pg.2 of IMM updated and reviewed with patient, who verbalized undertanding. Copy provided.
[2020-05-21] MEDS: potassium chloride premix 100 ML 25 MEQ IV (13:31)
--- NOTE | 2020-05-21 15:35 | P.PN_ITS ---
Subjective Subjective: Interval history: The patient reports feeling better today. Feels stronger. No pain. No fevers or chills. No chest pain, shortness of breath, cough, palpitations. No vaginal pain or itching. However she mentions that she is prone to vaginal infections when takes antibiotics. Medications: Reviewed: Yes Medication Review Details: Generic Name Dose Route Start Last Admin Trade Name Freq PRN Reason Stop Dose Admin Acetaminophen 650 mg 05/16/20 09:59 05/19/20 19:54 Acetaminophen 32 5 Mg Tablet PO 650 mg Q6H PRN Administration MILD PAIN Ceftriaxone Sodium 2,000 mg/ 50 mls @ 100 mls/ hr 05/19/20 09:00 05/21/20 09:46 Sodium Chloride IV Infused Q24H DUY Infusion Protocol Potassium Chloride 100 mls @ 25 mls/ hr 05/21/20 13:00 05/21/20 13:31 K-Yusuf IV 05/21/20 16:59 25 mls/hr ONCE ONE Administration Levothyroxine Sodi um 75 mcg 05/17/20 06:00 05/21/20 06:09 Levothyroxine 15 0 Mcg Tablet PO 75 mcg DAILY@06 DUY Administration Metoclopramide HCl 5 mg 05/16/20 10:00 05/21/20 08:52 Metoclopramide 5 Mg/Ml Sdv 2 Ml IVP 5 mg Q6H PRN Administration NAUSEA AND VOMITI NG Ondansetron HCl 4 mg 05/16/20 09:59 05/21/20 01:54 Ondansetron 2 Mg /Ml Sdv 2 Ml IVP 4 mg Q6H PRN Administration NAUSEA AND VOMITI NG Pantoprazole Sodiu m 40 mg 05/17/20 09:00 05/21/20 08:[address] 40 Mg Tablet PO 40 mg DAILY DUY Administration Promethazine HCl 25 mg 05/16/20 10:00 05/18/20 14:51 Promethazine 25 Mg/Ml Sdv 1 Ml IM 25 mg Q6H PRN Administration NAUSEA Tramadol HCl 50 mg 05/18/20 16:43 05/20/20 17:26 Tramadol 50 Mg T ablet PO 50 mg Q6H PRN Administration HEADACHE Vitals/I&O/Wt Last Vital Signs Temp 98.2 F 05/21/20 11:34 Pulse 70 05/21/20 14:00 Resp 18 05/21/20 11:34 BP 149/80 05/21/20 11:34 Pulse Ox 93 05/21/20 11:34 05/21/20 05/21/20 05/21/20 06:59 14:59 22:59 Intake Total 422 / 422 Output Total 200 / 2775 1100 / 1100 Balance -200 / -2425 -678 / -678 Weight last 48 hrs Weight 69.808 kg Weight 71.668 kg Physical Exam Narrative: EXAM NARRATIVE: Awake alert oriented. No acute distress. Mood and affect are appropriate. Responses are adequate. Skin warm and dry. Moist mucous nares. Neck supple. No JVD Lungs clear bilaterally.No respiratory distress Heart S1, S2, regular Abdomen is soft, nontender, bowel sounds are present Extremities no edema cyanosis or calf tenderness bilaterally Urinary Catheter Management^: Jean-Baptiste Latex Free: Cath Placed During This Visit: yes Reason for Continuing Indwelling Catheter: Acute Urinary Retention or Obstruction Urinary Catheter Date of Insertion: 05/16/20 Urinary Catheter Time of Insertion: 15:10 Data : 05/21/20 07:18 05/21/20 07:18 Micro: Microbiology 05/19/20 09:30 Urine Culture - Final Urine,Clean Catch 05/19/20 18:20 Blood Culture - Preliminary Blood NEGATIVE TO DATE 05/19/20 16:55 Blood Culture - Preliminary Blood NEGATIVE TO DATE A&P Assessment and plan (1) Sepsis secondary to UTI: Admission to ICU initially secondary to sepsis initially Required norepinephrine through the night but now off Significant fluid resuscitation occurred yesterday and she is positive at least 2500 cc Now she has some evidence of fluid overload with tachypnea, crackles. Will discontinue IV fluids, Lasix 20 mg IV x1. Monitor blood pressure closely. Blood and urine cultures pending Secondary to increase in LFTs and bilirubin will check CT abdomen and pelvis. Expand coverage to Zosyn and vancomycin currently. Status: Acute (2) UTI (urinary tract infection): See orders for antibiotic above Renal ultrasound demonstrated some urinary retention but no evidence of hydronephrosis Status: Acute (3) Leukopenia: Likely secondary to sepsis Now with leukocytosis as expected with sepsis Now with thrombocytopenia. May indicate some element of DIC. Continue Lovenox currently but would consider discontinuation if platelet count less than 70,000 Status: Acute (4) Hypothyroidism: TSH was checked and normal Status: Acute Additional A&P Information (1) Sepsis secondary to UTI: Admission to ICU initially secondary to sepsis initially Required norepinephrine through the night but now off Significant fluid resuscitation occurred yesterday and she is positive at least 2500 cc Now she has some evidence of fluid overload with tachypnea, crackles. Will discontinue IV fluids, Lasix 20 mg IV x1. Monitor blood pressure closely. Blood and urine cultures pending Secondary to increase in LFTs and bilirubin will check CT abdomen and pelvis. Expand coverage to Zosyn and vancomycin currently. Status: Acute (2) UTI (urinary tract infection): See orders for antibiotic above Renal ultrasound demonstrated some urinary retention but no evidence of hydronephrosis Status: Acute (3) Leukopenia: Likely secondary to sepsis Now with leukocytosis as expected with sepsis Now with thrombocytopenia. May indicate some element of DIC. Continue Lovenox currently but would consider discontinuation if platelet count less than 70,000 Status: Acute (4) Hypothyroidism: TSH was checked and normal Status: Acute 05/19 [place] Sepsis and septic shock with E. coli bacteremia secondary to urinary tract infection. Stable. Has associated gram-negative bacteremia. We will continue Rocephin. Leukocytosis improving. New cultures are negative so far. We will add nystatin oral for prevention of fungal complications. We will consider dis charging her home tomorrow. Fluid overload. Resolved. Continue hydration with oral fluids. Avoid IV fluids if possible. Thrombocytopenia. Most likely related to infection. Little better today. Lovenox is stopped. HIT screening test is pending. DVT prophylaxis. Teds and SCDs for now. Elevated LFTs. Probably secondary to sepsis. Monitor. Anemia. Stable. Acute kidney injury. Mild. Resolved. Monitor. Hypokalemia. Replace and monitor. The plan of care was discussed with the multidisciplinary team and the patient. They verbalized understanding and agreement. Attestations Medical Necessity Statement*: Hopefully home tomorrow. Some critical test results are pending. Coding Level of Care Code Acute Pull Through Hooker for g Fwd Diagnoses Sepsis secondary to UTI A41.9; N39.0 UTI (urinary tract infection) N39.0 Leukopenia D72.819 Hypothyroidism E03.9
[2020-05-21] MEDS: nystatin 100,000 unit/mL UDC 5 mL 500000 UNIT PO ×2 (17:03→20:52)
[2020-05-21] MEDS: zolpidem 5 mg Tablet PO (20:52)
[2020-05-22] VITALS (8 sets, daily range): BP systolic 113–149; BP diastolic 57–77; PULSE 65–74; RESP 16–20; TEMP 36.7–37.1; O2SAT 91–96
[2020-05-22] MEDS: levothyroxine 150 mcg Tablet 75 MCG PO (05:53)
[2020-05-22] MEDS: pantoprazole DR 40 mg Tablet PO (08:34)
[2020-05-22] MEDS: cefTRIAXone 2,000 MG in sodium chloride 0.9% (plus) 50 ML 100 MG IV (08:34)
[2020-05-22 08:51] LABS: Basophils # 0.2 10^3/uL (0.0-0.1); Basophils % 0.9 %; Eosinophils # 0.5 10^3/uL (0.0-0.8); Eosinophils % 2.9 %; Hematocrit 32.9 % (37.0-47.0); Hemoglobin 10.6 g/dL (11.5-15.3); Lymphocytes # 1.8 10^3/uL (0.8-4.8); Lymphocytes % 11.3 %; Mean Corpuscular HGB Conc 32.2 g/dL (30.0-36.0); Mean Corpuscular Hemoglobin 28.9 pg (28.0-34.0); Mean Corpuscular Volume 89.6 fL (81-99); Mean Platelet Volume 11.3 fL (7.4-10.4); Monocytes # 1.3 10^3/uL (0.2-0.9); Monocytes % 7.9 %; Neutrophils # 9.79 10^3/uL (1.8-7.7); Neutrophils % 60.7 %; Nucleated Red Blood Cells % 0 %; Platelet Count 195 10^3/cmm (130-400); Red Blood Count 3.67 10^6/uL (4.1-5.3); Red Cell Distribution Width 13.5 % (12.1-15.1); White Blood Count 16.2 10^3/uL (4.0-10.0)
[2020-05-22 09:28] LABS: Albumin Level 3.3 g/dL (3.5-5.2); Anion Gap 13.2 (5-19); Blood Urea Nitrogen 8 mg/dL (8-23); Calcium 8.1 mg/dL (8.5-10.5); Carbon Dioxide 23 mmol/L (22-29); Chloride 107 mmol/L (98-107); Glucose 97 mg/dL (65-115); Phosphorus 2.3 mg/dL (2.5-4.5); Potassium 3.2 mmol/L (3.5-5.1); Sodium 140 mmol/L (136-145)
[2020-05-22 09:44] LABS: Slide Review Slide Review Perform
[2020-05-22] MEDS: potassium chloride ER 20 mEq Tablet PO ×4 (11:05→22:00)
--- NOTE | 2020-05-22 11:20 | PC.NURSE ---
received permission from pt to talk to granddaughter, Mehnaz, via telephone.
--- NOTE | 2020-05-22 15:01 | PC.OT ---
OT TREATMENT HELD TODAY DUE TO LOW K
--- NOTE | 2020-05-22 16:01 | PC.OT ---
OT note: Reviewed labs and pt's potassium was 3.2. Attempted OT session, however, pt declined further OT and reported she has been able to do her own self-cares and get to and from the bathroom without assistance. Pt will be discharged from OT per her request.
[2020-05-22] MEDS: nystatin 100,000 unit/mL UDC 5 mL 500000 UNIT PO ×2 (16:04→21:54)
[2020-05-22] MEDS: acetaminophen 325 mg Tablet 650 MG PO (16:08)
--- NOTE | 2020-05-22 16:12 | P.PN_ITS ---
Subjective Subjective: Interval history: Overall the patient is feeling better. However she is concerned that her leukocytosis has worsened. No fevers or chills. No nausea or vomiting. No back pain or abdominal pain. No diarrhea. Denies dysuria. Denies difficulties with passing urine. Medications: Reviewed: Yes Medication Review Details: Generic Name Dose Route Start Last Admin Trade Name Freq PRN Reason Stop Dose Admin Acetaminophen 650 mg 05/16/20 09:59 05/22/20 16:08 Acetaminophen 32 5 Mg Tablet PO 650 mg Q6H PRN Administration MILD PAIN Ceftriaxone Sodium 2,000 mg/ 50 mls @ 100 mls/ hr 05/19/20 09:00 05/22/20 09:40 Sodium Chloride IV Infused Q24H DUY Infusion Protocol Levothyroxine Sodi um 75 mcg 05/17/20 06:00 05/22/20 05:53 Levothyroxine 15 0 Mcg Tablet PO 75 mcg DAILY@06 DUY Administration Metoclopramide HCl 5 mg 05/16/20 10:00 05/21/20 08:52 Metoclopramide 5 Mg/Ml Sdv 2 Ml IVP 5 mg Q6H PRN Administration NAUSEA AND VOMITI NG Nystatin 500,000 unit 05/21/20 17:00 05/22/20 16:04 Nystatin 100,000 Unit/Ml Udc 5 Ml PO 500,000 unit QID DUY Administration Ondansetron HCl 4 mg 05/16/20 09:59 05/21/20 01:54 Ondansetron 2 Mg /Ml Sdv 2 Ml IVP 4 mg Q6H PRN Administration NAUSEA AND VOMITI NG Pantoprazole Sodiu m 40 mg 05/17/20 09:00 05/22/20 08:[address] 40 Mg Tablet PO 40 mg DAILY DUY Administration Potassium Chloride 20 meq 05/22/20 11:00 05/22/20 14:52 Potassium Chlori de Er 20 Meq Table t PO 05/22/20 23:59 20 meq Q4H DUY Administration Promethazine HCl 25 mg 05/16/20 10:00 05/18/20 14:51 Promethazine 25 Mg/Ml Sdv 1 Ml IM 25 mg Q6H PRN Administration NAUSEA Tramadol HCl 50 mg 05/18/20 16:43 05/20/20 17:26 Tramadol 50 Mg T ablet PO 50 mg Q6H PRN Administration HEADACHE Zolpidem Tartrate 5 mg 05/21/20 19:57 05/21/20 20:52 Zolpidem 5 Mg Ta blet PO 5 mg BEDTIME PRN Administration INSOMNIA Vitals/I&O/Wt Last Vital Signs Temp 98.8 F 05/22/20 15:32 Pulse 69 05/22/20 15:32 Resp 18 05/22/20 15:32 BP 135/70 05/22/20 15:32 Pulse Ox 94 05/22/20 15:32 05/22/20 05/22/20 05/22/20 06:59 14:59 22:59 Intake Total 750 / 750 Balance 750 / 750 Weight last 48 hrs Weight 68.175 kg Weight 69.808 kg Physical Exam Narrative: EXAM NARRATIVE: Awake alert oriented. No acute distress. Mood and affect are appropriate. Responses are adequate. Skin warm and dry. Moist mucous nares. Neck supple. No JVD Lungs clear bilaterally.No respiratory distress Heart S1, S2, regular Abdomen is soft, nontender, bowel sounds are present Extremities no edema cyanosis or calf tenderness bilaterally Urinary Catheter Management^: Jean-Baptiste Latex Free: Cath Placed During This Visit: yes Reason for Continuing Indwelling Catheter: Acute Urinary Retention or Obstruction Urinary Catheter Date of Insertion: 05/16/20 Urinary Catheter Time of Insertion: 15:10 Data : 05/22/20 07:40 05/22/20 07:40 A&P Assessment and plan (1) Sepsis secondary to UTI: Admission to ICU initially secondary to sepsis initially Required norepinephrine through the night but now off Significant fluid resuscitation occurred yesterday and she is positive at least 2500 cc Now she has some evidence of fluid overload with tachypnea, crackles. Will discontinue IV fluids, Lasix 20 mg IV x1. Monitor blood pressure closely. Blood and urine cultures pending Secondary to increase in LFTs and bilirubin will check CT abdomen and pelvis. Expand coverage to Zosyn and vancomycin currently. Status: Acute (2) UTI (urinary tract infection): See orders for antibiotic above Renal ultrasound demonstrated some urinary retention but no evidence of hydronephrosis Status: Acute (3) Leukopenia: Likely secondary to sepsis Now with leukocytosis as expected with sepsis Now with thrombocytopenia. May indicate some element of DIC. Continue Lovenox currently but would consider discontinuation if platelet count less than 70,000 Status: Acute (4) Hypothyroidism: TSH was checked and normal Status: Acute Additional A&P Information (1) Sepsis secondary to UTI: Admission to ICU initially secondary to sepsis initially Required norepinephrine through the night but now off Significant fluid resuscitation occurred yesterday and she is positive at least 2500 cc Now she has some evidence of fluid overload with tachypnea, crackles. Will discontinue IV fluids, Lasix 20 mg IV x1. Monitor blood pressure closely. Blood and urine cultures pending Secondary to increase in LFTs and bilirubin will check CT abdomen and pelvis. Expand coverage to Zosyn and vancomycin currently. Status: Acute (2) UTI (urinary tract infection): See orders for antibiotic above Renal ultrasound demonstrated some urinary retention but no evidence of hydronephrosis Status: Acute (3) Leukopenia: Likely secondary to sepsis Now with leukocytosis as expected with sepsis Now with thrombocytopenia. May indicate some element of DIC. Continue Lovenox currently but would consider discontinuation if platelet count less than 70,000 Status: Acute (4) Hypothyroidism: TSH was checked and normal Status: Acute [place] Sepsis and septic shock with E. coli bacteremia secondary to urinary tract infection. Stable. Has associated gram-negative bacteremia. We will continue Rocephin. Leukocytosis has worsened today. New cultures are negative so far. Nystatin was added yesterday to prevent secondary yeast infection. We will consider discharging her home tomorrow if white blood cell count improves. Fluid overload. Resolved. Continue hydration with oral fluids. Avoid IV fluids if possible. Thrombocytopenia. Most likely related to infection. Resolving. Lovenox is stopped. HIT screening test is pending. DVT prophylaxis. Teds and SCDs for now. Elevated LFTs. Probably secondary to sepsis. Monitor. Anemia. Stable. Acute kidney injury. Mild. Resolved. Monitor. Hypokalemia. Replace and monitor. The plan of care was discussed with the multidisciplinary team and the patient. They verbalized understanding and agreement. Attestations Medical Necessity Statement*: Hopefully will be able to discharge her home tomorrow if her white blood cell count improved. For now we will continue IV antibiotics and monitoring of her CBC. Coding Level of Care Code Acute Grinder Operator Surface Tool for g Fwd Diagnoses Sepsis secondary to UTI A41.9; N39.0 UTI (urinary tract infection) N39.0 Leukopenia D72.819 Hypothyroidism E03.9
[2020-05-22] MEDS: zolpidem 5 mg Tablet PO (21:57)
[2020-05-23 02:52] LABS: Heparin Induced Platelet AB NEGATIVE (NEGATIVE); Patient O.D 0.019
[2020-05-23 03:49] VITALS: BP 145/76; PULSE 70; RESP 17; TEMP 36.8; O2SAT 94
[2020-05-23 05:59] LABS: Basophils # 0.2 10^3/uL (0.0-0.1); Eosinophils # 0.4 10^3/uL (0.0-0.8); Eosinophils % 2.5 %; Hemoglobin 10.8 g/dL (11.5-15.3); Lymphocytes # 1.7 10^3/uL (0.8-4.8); Lymphocytes % 9.8 %; Mean Corpuscular HGB Conc 30.9 g/dL (30.0-36.0); Mean Corpuscular Hemoglobin 28.9 pg (28.0-34.0); Mean Corpuscular Volume 93.6 fL (81-99); Mean Platelet Volume 10.6 fL (7.4-10.4); Monocytes # 1.3 10^3/uL (0.2-0.9); Monocytes % 7.5 %; Neutrophils # 12.03 10^3/uL (1.8-7.7); Neutrophils % 68.1 %; Nucleated Red Blood Cells % 0 %; Platelet Count 266 10^3/cmm (130-400); Red Blood Count 3.74 10^6/uL (4.1-5.3); Red Cell Distribution Width 13.8 % (12.1-15.1); White Blood Count 17.7 10^3/uL (4.0-10.0)
[2020-05-23] MEDS: levothyroxine 150 mcg Tablet 75 MCG PO (06:09)
[2020-05-23 06:25] LABS: Slide Review Slide Review Perform
[2020-05-23 06:32] LABS: C Reactive Protein 9.9 mg/L (0.0-4.9); Magnesium 2.1 mg/dL (1.7-2.3)
[2020-05-23 06:33] LABS: Procalcitonin 0.58 ng/mL (0-0.5)
[2020-05-23 06:44] LABS: Albumin Level 3.5 g/dL (3.5-5.2); Anion Gap 16.4 (5-19); Blood Urea Nitrogen 9 mg/dL (8-23); Calcium 8.5 mg/dL (8.5-10.5); Carbon Dioxide 19 mmol/L (22-29); Chloride 108 mmol/L (98-107); Glucose 90 mg/dL (65-115); Phosphorus 2.3 mg/dL (2.5-4.5); Potassium 4.4 mmol/L (3.5-5.1); Sodium 139 mmol/L (136-145)
[2020-05-23 07:51] VITALS: BP 147/75; PULSE 68; RESP 16; TEMP 36.6; O2SAT 94
[2020-05-23] MEDS: cefTRIAXone 2,000 MG in sodium chloride 0.9% (plus) 50 ML 100 MG IV (08:49)
[2020-05-23] MEDS: nystatin 100,000 unit/mL UDC 5 mL 500000 UNIT PO ×2 (08:50→13:46)
[2020-05-23] MEDS: pantoprazole DR 40 mg Tablet PO (08:50)
--- NOTE | 2020-05-23 11:35 | PC.SOCIAL ---
*IMM* Updated and copy gave to the patient.
--- NOTE | 2020-05-23 11:40 | XRR_ITS ---
PROCEDURE INFORMATION: Exam: XR Chest, 1 View Exam date and time: 05/23/2020 11:56 AM Age: 79 years old Clinical indication: Shortness of breath; Additional info: SOB TECHNIQUE: Imaging protocol: XR of the chest Views: 1 view. COMPARISON: CR XR chest 1V portable [id number] 05/16/2020 5:42 AM FINDINGS: Lungs: Unremarkable. No consolidation. Pleural space: Unremarkable. No pleural effusion. No pneumothorax. Heart/Mediastinum: Unremarkable. No cardiomegaly. Bones/joints: Unremarkable. XR/XR chest 1V portable [id number] IMPRESSION: No acute findings.
[2020-05-23 12:00] VITALS: BP 131/72; PULSE 75; RESP 16; TEMP 37; O2SAT 97
--- NOTE | 2020-05-23 12:23 | P.PN_ITS ---
Subjective Subjective: Interval history: Patient has remained afebrile.Deny any urinary complain,deny any nausea,vomiting,back pain.She is tolerating diet well. Other vitals and labs have been reviewed. Medications: Reviewed: Yes Vitals/I&O/Wt Last Vital Signs Temp 97.9 F 05/23/20 07:51 Pulse 68 05/23/20 07:51 Resp 16 05/23/20 07:51 BP 147/75 05/23/20 07:51 Pulse Ox 94 05/23/20 07:51 05/22/20 05/23/20 05/23/20 22:59 06:59 14:59 Output Total 0 / 0 Balance 0 / 750 Weight last 48 hrs Weight 67.767 kg Weight 68.175 kg Physical Exam Const: COMMON NORMALS: patient oriented x3 HENMT: COMMON NORMALS: normocephalic and atraumatic HEAD & SCALP: normocephalic and atraumatic Chest: COMMONS NORMALS: normal inspection of the chest Resp: COMMON NORMALS: normal respiratory effort and clear to auscultation bilaterally EFFORT & INSPECTION: Yes symmetric chest movement AUSCULTATION: clear to auscultation bilaterally Cardio: COMMON NORMALS: regular rate, regular rhythm, S1 normal heart sound present, S2 normal heart sound present, No gallops present (Cardio), No murmurs present (Cardio), No rub (Cardio) and Peripheral pulses 2+ throughout RATE: regular rate RHYTHM: regular rhythm HEART SOUNDS: S1 normal heart sound present and S2 normal heart sound present PERIPHERAL PULSES: Peripheral pulses 2+ throughout GI: COMMON NORMALS: Normal to inspection, nondistended, normoactive bowel sounds present, Soft to palpation, non-tender, No hepatosplenomegaly present and no masses AUSCULTATION: Yes normoactive bowel sounds PALPATION: Yes Soft to palpation and Yes No hepatosplenomegaly present RECTAL EXAM: deferred : COMMON NORMALS: Yes no CVA tenderness BLADDER/KIDNEY EXAM: Yes no CVA tenderness Back/Pelvis: COMMON NORMALS: no CVA tenderness Extremity: COMMON NORMALS: no clubbing, cyanosis or edema and no pedal edema Neuro: COMMON NORMALS: patient oriented x3 Urinary Catheter Management^: Jean-Baptiste Latex Free: Cath Placed During This Visit: yes Reason for Continuing Indwelling Catheter: Acute Urinary Retention or Obstruction Urinary Catheter Date of Insertion: 05/16/20 Urinary Catheter Time of Insertion: 15:10 Data : 05/23/20 05:36 05/23/20 05:36 Micro: Microbiology 05/18/20 04:57 Blood Culture - Final Blood NO GROWTH AFTER 5 DAYS 05/16/20 07:39 Blood Culture - Final Blood Escherichia coli 05/16/20 07:39 Blood Culture - Final Blood Escherichia coli A&P Assessment and plan (1) Sepsis secondary to UTI: Admission to ICU initially secondary to sepsis initially Required norepinephrine through the night but now off Significant fluid resuscitation occurred yesterday and she is positive at least 2500 cc Now she has some evidence of fluid overload with tachypnea, crackles. Will discontinue IV fluids, Lasix 20 mg IV x1. Monitor blood pressure closely. Blood and urine cultures pending Secondary to increase in LFTs and bilirubin will check CT abdomen and pelvis. Expand coverage to Zosyn and vancomycin currently. Status: Acute (2) UTI (urinary tract infection): See orders for antibiotic above Renal ultrasound demonstrated some urinary retention but no evidence of hydronephrosis Status: Acute (3) Leukopenia: Likely secondary to sepsis Now with leukocytosis as expected with sepsis Now with thrombocytopenia. May indicate some element of DIC. Continue Lovenox currently but would consider discontinuation if platelet count less than 70,000 Status: Acute (4) Hypothyroidism: TSH was checked and normal Status: Acute Additional A&P Information (1) Sepsis secondary to UTI: Admission to ICU initially secondary to sepsis initially Required norepinephrine through the night but now off Significant fluid resuscitation occurred yesterday and she is positive at least 2500 cc Now she has some evidence of fluid overload with tachypnea, crackles. Will discontinue IV fluids, Lasix 20 mg IV x1. Monitor blood pressure closely. Blood and urine cultures pending Secondary to increase in LFTs and bilirubin will check CT abdomen and pelvis. Expand coverage to Zosyn and vancomycin currently. Status: Acute (2) UTI (urinary tract infection): See orders for antibiotic above Renal ultrasound demonstrated some urinary retention but no evidence of hydronephrosis Status: Acute (3) Leukopenia: Likely secondary to sepsis Now with leukocytosis as expected with sepsis Now with thrombocytopenia. May indicate some element of DIC. Continue Lovenox currently but would consider discontinuation if platelet count less than 70,000 Status: Acute (4) Hypothyroidism: TSH was checked and normal Status: Acute Sepsis and septic shock with E. coli bacteremia secondary to urinary tract infection. Stable. Has associated gram-negative bacteremia. We will continue Rocephin. Leukocytosis has worsened today. New cultures are negative so far. Nystatin was added yesterday to prevent secondary yeast infection. Will do Renal U/S for evaluation of possible pyelo.Will aviod C.T ABDOMEN and Pelvis with contrast for now. Thrombocytopenia. Most likely related to infection. Resolving. Lovenox is stopped. HIT screening test is pending. DVT prophylaxis. Teds and SCDs for now. Elevated LFTs. Probably secondary to sepsis. Monitor. Anemia. Stable. Acute kidney injury. Mild. Resolved. Monitor. Hypokalemia. Replace and monitor. Attestations Medical Necessity Statement*: Patient needs to be in hospital for the management of sepsis 2/2 UTI.and for monitoring of leukocytosis. Coding Level of Care Code Acute Flower Maker for [facility] Fwd Diagnoses Sepsis secondary to UTI A41.9; N39.0 UTI (urinary tract infection) N39.0 Leukopenia D72.819 Hypothyroidism E03.9
[2020-05-23 15:36] VITALS: BP 144/66; PULSE 77; RESP 16; TEMP 36.9; O2SAT 96
[2020-05-23 20:00] VITALS: BP 117/56; PULSE 75; RESP 18; TEMP 37.2; O2SAT 96
[2020-05-23] MEDS: zolpidem 5 mg Tablet PO (20:27)
[2020-05-23 21:07] LABS: UFH High Dose, 100 IU/ML 0 % release; UFH Low Dose, 0.1 IU/ML 0 % release; UFH Low Dose, 0.5 IU/ML 0 % release; UFH SRA Result NEGATIVE (NEGATIVE)
[2020-05-24] VITALS: BP 131/74; PULSE 78; RESP 18; TEMP 37.1; O2SAT 94
[2020-05-24 04:00] VITALS: BP 141/63; PULSE 70; RESP 18; TEMP 36.7; O2SAT 97
[2020-05-24] MEDS: levothyroxine 150 mcg Tablet 75 MCG PO (05:17)
[2020-05-24 05:57] LABS: Basophils # 0.1 10^3/uL (0.0-0.1); Basophils % 0.4 %; Eosinophils # 0.2 10^3/uL (0.0-0.8); Eosinophils % 1.3 %; Hematocrit 35.5 % (37.0-47.0); Hemoglobin 11.3 g/dL (11.5-15.3); Lymphocytes # 1.5 10^3/uL (0.8-4.8); Lymphocytes % 8.2 %; Mean Corpuscular HGB Conc 31.8 g/dL (30.0-36.0); Mean Corpuscular Hemoglobin 29.4 pg (28.0-34.0); Mean Corpuscular Volume 92.2 fL (81-99); Mean Platelet Volume 10.7 fL (7.4-10.4); Monocytes # 1.2 10^3/uL (0.2-0.9); Monocytes % 6.9 %; Neutrophils # 14.04 10^3/uL (1.8-7.7); Nucleated Red Blood Cells % 0 %; Platelet Count 451 10^3/cmm (130-400); Red Blood Count 3.85 10^6/uL (4.1-5.3)
[2020-05-24 06:13] LABS: Neutrophils % 83.2 %
[2020-05-24 06:29] LABS: Anion Gap 14.8 (5-19); Blood Urea Nitrogen 11 mg/dL (8-23); Calcium 8.8 mg/dL (8.5-10.5); Carbon Dioxide 21 mmol/L (22-29); Chloride 107 mmol/L (98-107); Glucose 92 mg/dL (65-115); Osmolality Calculated 287 mOsm/kg (285-295); Potassium 3.8 mmol/L (3.5-5.1); Sodium 139 mmol/L (136-145)
[2020-05-24 07:57] VITALS: BP 109/67; PULSE 86; RESP 18; TEMP 36.7; O2SAT 96
[2020-05-24] MEDS: cefTRIAXone 2,000 MG in sodium chloride 0.9% (plus) 50 ML 100 MG IV (08:21)
[2020-05-24] MEDS: pantoprazole DR 40 mg Tablet PO (08:22)
[2020-05-24] MEDS: piperacillin-tazobactam 3.375 GM in sodium chloride 0.9% (plus) 50 ML IV ×2 (10:00→17:35)
[2020-05-24] MEDS: acetaminophen 325 mg Tablet 650 MG PO (10:08)
[2020-05-24 11:37] VITALS: BP 103/60; PULSE 67; RESP 18; TEMP 36.7; O2SAT 95
--- NOTE | 2020-05-24 12:55 | PM.PN ---
Subjective Subjective: Interval history: she was complaing of nausea as well as 3 episodes of watery non bloody diarrhea. Has remained afebrile, tolerating diet well.Saturating well on R.A. Has persistent worsening leukocytosis. Vitals/I&O/Wt Last Vital Signs Temp 98.1 F 05/24/20 11:37 Pulse 67 05/24/20 11:37 Resp 18 05/24/20 11:37 BP 103/60 05/24/20 11:37 Pulse Ox 95 05/24/20 11:37 05/23/20 05/24/20 05/24/20 22:59 06:59 14:59 Intake Total 120 / 400 240 / 240 Balance 120 / 400 240 / 240 Weight last 48 hrs Weight 66.542 kg Weight 67.767 kg Physical Exam Const: COMMON NORMALS: patient oriented x3 HENMT: COMMON NORMALS: normocephalic and atraumatic HEAD & SCALP: normocephalic and atraumatic Chest: COMMONS NORMALS: normal inspection of the chest CHEST: Yes Symmetrical chest wall rise Resp: COMMON NORMALS: normal respiratory effort and clear to auscultation bilaterally EFFORT & INSPECTION: Yes symmetric chest movement AUSCULTATION: clear to auscultation bilaterally Cardio: COMMON NORMALS: regular rate, regular rhythm, S1 normal heart sound present, S2 normal heart sound present, No gallops present (Cardio), No murmurs present (Cardio), No rub (Cardio) and Peripheral pulses 2+ throughout RATE: regular rate RHYTHM: regular rhythm HEART SOUNDS: S1 normal heart sound present and S2 normal heart sound present PERIPHERAL PULSES: Peripheral pulses 2+ throughout GI: COMMON NORMALS: Normal to inspection, nondistended, normoactive bowel sounds present, Soft to palpation, non-tender, No hepatosplenomegaly present and no masses AUSCULTATION: Yes normoactive bowel sounds PALPATION: Yes Soft to palpation and Yes No hepatosplenomegaly present RECTAL EXAM: deferred Extremity: COMMON NORMALS: no clubbing, cyanosis or edema and no pedal edema Neuro: COMMON NORMALS: patient oriented x3 Urinary Catheter Management^: Jean-Baptiste Latex Free: Cath Placed During This Visit: yes Reason for Continuing Indwelling Catheter: Acute Urinary Retention or Obstruction Urinary Catheter Date of Insertion: 05/16/20 Urinary Catheter Time of Insertion: 15:10 Data : 05/24/20 05:14 05/24/20 05:14 Micro: Microbiology 05/18/20 09:08 Blood Culture - Final Blood NO GROWTH AFTER 5 DAYS 05/18/20 04:57 Blood Culture - Final Blood NO GROWTH AFTER 5 DAYS A&P Assessment and plan (1) Sepsis secondary to UTI: Admission to ICU initially secondary to sepsis initially Required norepinephrine through the night but now off Significant fluid resuscitation occurred yesterday and she is positive at least 2500 cc Now she has some evidence of fluid overload with tachypnea, crackles. Will discontinue IV fluids, Lasix 20 mg IV x1. Monitor blood pressure closely. Blood and urine cultures pending Secondary to increase in LFTs and bilirubin will check CT abdomen and pelvis. Expand coverage to Zosyn and vancomycin currently. Status: Acute (2) UTI (urinary tract infection): See orders for antibiotic above Renal ultrasound demonstrated some urinary retention but no evidence of hydronephrosis Status: Acute (3) Leukopenia: Likely secondary to sepsis Now with leukocytosis as expected with sepsis Now with thrombocytopenia. May indicate some element of DIC. Continue Lovenox currently but would consider discontinuation if platelet count less than 70,000 Status: Acute (4) Hypothyroidism: TSH was checked and normal Status: Acute Additional A&P Information (1) Sepsis secondary to UTI: Admission to ICU initially secondary to sepsis initially Required norepinephrine through the night but now off Significant fluid resuscitation occurred yesterday and she is positive at least 2500 cc Now she has some evidence of fluid overload with tachypnea, crackles. Will discontinue IV fluids, Lasix 20 mg IV x1. Monitor blood pressure closely. Blood and urine cultures pending Secondary to increase in LFTs and bilirubin will check CT abdomen and pelvis. Expand coverage to Zosyn and vancomycin currently. Status: Acute (2) UTI (urinary tract infection): See orders for antibiotic above Renal ultrasound demonstrated some urinary retention but no evidence of hydronephrosis Status: Acute (3) Leukopenia: Likely secondary to sepsis Now with leukocytosis as expected with sepsis Now with thrombocytopenia. May indicate some element of DIC. Continue Lovenox currently but would consider discontinuation if platelet count less than 70,000 Status: Acute (4) Hypothyroidism: TSH was checked and normal Status: Acute Sepsis and septic shock with E. coli bacteremia secondary to urinary tract infection. Stable. Has associated gram-negative bacteremia. Leukocytosis has worsened today. New cultures are negative so far. Nystatin was added yesterday to prevent secondary yeast infection. Will do Renal U/S for evaluation of possible pyelo.:WNL (No stone ,No Hydronephrosis ) Will aviod C.T ABDOMEN and Pelvis with contrast for now. Rocephin was discontinued on 05/24. Zosyn was started. Thrombocytopenia. Most likely related to infection. Resolving. Lovenox is stopped. HIT screening test is pending. DVT prophylaxis. Teds and SCDs for now. Elevated LFTs. Probably secondary to sepsis. Monitor. Anemia. Stable. Acute kidney injury. Mild. Resolved. Monitor. Hypokalemia. Replace and monitor. Attestations Medical Necessity Statement*: Patient needs to be in hospital for the management of sepsis 2/2 UTI. Coding Level of Care Code Acute House Nurse for [facility] Diagnoses Sepsis secondary to UTI A41.9; N39.0 UTI (urinary tract infection) N39.0 Leukopenia D72.819 Hypothyroidism E03.9
[2020-05-24 16:00] VITALS: BP 115/65; PULSE 74; RESP 18; TEMP 36.9; O2SAT 98
[2020-05-24 19:44] VITALS: BP 115/63; PULSE 69; RESP 17; TEMP 36.7; O2SAT 99
--- NOTE | 2020-05-24 20:10 | USR_ITS ---
PROCEDURE INFORMATION: Exam: US Retroperitoneal; Complete; Kidneys and Bladder Exam date and time: 05/24/2020 9:26 AM Age: 79 years old Clinical indication: Fever and other: Increasing wbc; Additional info: Pyelonephritis evaluation TECHNIQUE: Imaging protocol: Real-time ultrasound of the retroperitoneum with image documentation. Complete exam focused on the kidneys and bladder. COMPARISON: US renal BI* [id number] 05/16/2020 2:26 PM FINDINGS: Right kidney: Measures 10.4 x 4.4 x 4.1 cm. There is a 1.2 cm cyst in the mid right kidney. No stones. No hydronephrosis. Left kidney: Measures 10.3 x 5.8 x 5.8 cm. There is a 1.5 cm cyst in the medial left kidney and a 1.8 x 1.6 cm cyst in the medial left kidney which are simple. No stones. No hydronephrosis. Urinary bladder: Unremarkable. US/US renal BI* [id number] IMPRESSION: No hydronephrosis. There are benign renal cysts. No follow-up imaging is recommended.
[2020-05-24] MEDS: zolpidem 5 mg Tablet PO (21:32)
[2020-05-25] VITALS: BP 131/76; PULSE 69; RESP 17; TEMP 37.5; O2SAT 96
[2020-05-25] MEDS: piperacillin-tazobactam 3.375 GM in sodium chloride 0.9% (plus) 50 ML IV ×3 (00:01→16:13)
[2020-05-25 04:00] VITALS: BP 114/65; PULSE 65; RESP 17; TEMP 36.7; O2SAT 96
[2020-05-25 05:39] LABS: Basophils % 0.3 %; Eosinophils # 0.3 10^3/uL (0.0-0.8); Eosinophils % 2.2 %; Hematocrit 33.3 % (37.0-47.0); Hemoglobin 10.7 g/dL (11.5-15.3); Lymphocytes # 1.3 10^3/uL (0.8-4.8); Lymphocytes % 10.1 %; Mean Corpuscular HGB Conc 32.1 g/dL (30.0-36.0); Mean Corpuscular Hemoglobin 29.6 pg (28.0-34.0); Mean Platelet Volume 10.3 fL (7.4-10.4); Neutrophils # 9.29 10^3/uL (1.8-7.7); Neutrophils % 75.3 %; Nucleated Red Blood Cells % 0 %; Platelet Count 593 10^3/cmm (130-400); Red Blood Count 3.62 10^6/uL (4.1-5.3); Red Cell Distribution Width 13.8 % (12.1-15.1); White Blood Count 12.3 10^3/uL (4.0-10.0)
[2020-05-25] MEDS: levothyroxine 150 mcg Tablet 75 MCG PO (05:50)
[2020-05-25 06:15] LABS: Alanine Aminotransferase 16 U/L (0-33); Albumin Level 3.2 g/dL (3.5-5.2); Alkaline Phosphatase 116 IU/L (35-105); Anion Gap 13.8 (5-19); Aspartate Amino Transferase 10 U/L (0-32); Blood Urea Nitrogen 15 mg/dL (8-23); Calcium 8.7 mg/dL (8.5-10.5); Carbon Dioxide 22 mmol/L (22-29); Chloride 108 mmol/L (98-107); Globulin 3.5 g/dL (1.3-4.6); Glucose 102 mg/dL (65-115); Osmolality Calculated 291 mOsm/kg (285-295); Potassium 3.8 mmol/L (3.5-5.1); Sodium 140 mmol/L (136-145); Total Bilirubin 0.7 mg/dL (0.15-1.2); Total Protein 6.7 g/dL (6.6-8.7)
[2020-05-25 06:19] LABS: Lactate (Lactic Acid level) 0.7 mmol/L (0.5-2.2)
[2020-05-25 07:16] VITALS: BP 124/72; PULSE 66; RESP 16; TEMP 36.8; O2SAT 92
[2020-05-25 07:42] LABS: Procalcitonin 0.35 ng/mL (0-0.5)
[2020-05-25] MEDS: pantoprazole DR 40 mg Tablet PO (08:40)
[2020-05-25 11:14] VITALS: BP 104/64; PULSE 68; RESP 16; TEMP 36.7; O2SAT 98
--- NOTE | 2020-05-25 12:57 | DCPLANNER ---
Pg 2 of IM updated and reviewed with Pt. and Spouse, no questions, copy provided.
--- NOTE | 2020-05-25 14:19 | P.PN_ITS ---
Subjective Subjective: Interval history: is doing fine.Her nausea has improved, no longer has diarrhea.Leukocytosis is trending down. She has remained afebrile, other vitals are stable. labs have been reviewed. Medications: Reviewed: Yes Vitals/I&O/Wt Last Vital Signs Temp 98.1 F 05/25/20 11:14 Pulse 68 05/25/20 11:14 Resp 16 05/25/20 11:14 BP 104/64 05/25/20 11:14 Pulse Ox 98 05/25/20 11:14 05/24/20 05/25/20 05/25/20 22:59 06:59 14:59 Intake Total 410 / 700 50 / 750 520 / 520 Balance 410 / 550 50 / 600 520 / 520 Weight last 48 hrs Weight 66.134 kg Weight 66.542 kg Physical Exam Const: COMMON NORMALS: patient oriented x3 HENMT: COMMON NORMALS: normocephalic and atraumatic HEAD & SCALP: normocephalic and atraumatic Chest: CHEST: Yes Symmetrical chest wall rise Resp: COMMON NORMALS: normal respiratory effort and clear to auscultation bilaterally EFFORT & INSPECTION: Yes symmetric chest movement AUSCULTATION: clear to auscultation bilaterally Cardio: COMMON NORMALS: regular rate, regular rhythm, S1 normal heart sound present and S2 normal heart sound present RATE: regular rate RHYTHM: regular rhythm HEART SOUNDS: S1 normal heart sound present and S2 normal heart sound present GI: COMMON NORMALS: Normal to inspection, nondistended, normoactive bowel sounds present, Soft to palpation, non-tender, No hepatosplenomegaly present and no masses AUSCULTATION: Yes normoactive bowel sounds PALPATION: Yes Soft to palpation and Yes No hepatosplenomegaly present RECTAL EXAM: deferred Extremity: COMMON NORMALS: no clubbing, cyanosis or edema and no pedal edema Neuro: COMMON NORMALS: patient oriented x3 Urinary Catheter Management^: Jean-Baptiste Latex Free: Cath Placed During This Visit: yes Reason for Continuing Indwelling Catheter: Acute Urinary Retention or Obstruction Urinary Catheter Date of Insertion: 05/16/20 Urinary Catheter Time of Insertion: 15:10 Data : 05/25/20 05:15 05/25/20 05:15 Micro: Microbiology 05/19/20 18:20 Blood Culture - Final Blood NO GROWTH AFTER 5 DAYS 05/19/20 16:55 Blood Culture - Final Blood NO GROWTH AFTER 5 DAYS A&P Assessment and plan (1) Sepsis secondary to UTI: Admission to ICU initially secondary to sepsis initially Required norepinephrine through the night but now off Significant fluid resuscitation occurred yesterday and she is positive at least 2500 cc Now she has some evidence of fluid overload with tachypnea, crackles. Will discontinue IV fluids, Lasix 20 mg IV x1. Monitor blood pressure closely. Blood and urine cultures pending Secondary to increase in LFTs and bilirubin will check CT abdomen and pelvis. Expand coverage to Zosyn and vancomycin currently. Status: Acute (2) UTI (urinary tract infection): See orders for antibiotic above Renal ultrasound demonstrated some urinary retention but no evidence of hydronephrosis Status: Acute (3) Leukopenia: Likely secondary to sepsis Now with leukocytosis as expected with sepsis Now with thrombocytopenia. May indicate some element of DIC. Continue Lovenox currently but would consider discontinuation if platelet count less than 70,000 Status: Acute (4) Hypothyroidism: TSH was checked and normal Status: Acute Additional A&P Information (1) Sepsis secondary to UTI: Admission to ICU initially secondary to sepsis initially Required norepinephrine through the night but now off Significant fluid resuscitation occurred yesterday and she is positive at least 2500 cc Now she has some evidence of fluid overload with tachypnea, crackles. Will discontinue IV fluids, Lasix 20 mg IV x1. Monitor blood pressure closely. Blood and urine cultures pending Secondary to increase in LFTs and bilirubin will check CT abdomen and pelvis. Expand coverage to Zosyn and vancomycin currently. Status: Acute (2) UTI (urinary tract infection): See orders for antibiotic above Renal ultrasound demonstrated some urinary retention but no evidence of hydro nephrosis Status: Acute (3) Leukopenia: Likely secondary to sepsis Now with leukocytosis as expected with sepsis Now with thrombocytopenia. May indicate some element of DIC. Continue Lovenox currently but would consider discontinuation if platelet count less than 70,000 Status: Acute (4) Hypothyroidism: TSH was checked and normal Status: Acute Sepsis and septic shock with E. coli bacteremia secondary to urinary tract infection. Stable. Has associated gram-negative bacteremia. Leukocytosis is improving . New cultures are negative so far. Nystatin was added to prevent secondary yeast infection. Renal U/S for evaluation of possible pyelo.:WNL (No stone ,No Hydronephrosis ) Will aviod C.T ABDOMEN and Pelvis with contrast for now. Rocephin was discontinued on 05/24. Zosyn was started. Thrombocytopenia. Most likely related to infection. Resolving. Lovenox is stopped. HIT screening test is pending. DVT prophylaxis. Teds and SCDs for now. Elevated LFTs. Probably secondary to sepsis. ( Resolved ) Anemia. Stable. Acute kidney injury. Mild. Resolved. Monitor. Hypokalemia. Replace and monitor. Attestations Medical Necessity Statement*: Patient needs to be in hospital for the management of sepsis 2/2 to UTI Coding Level of Care Code Acute Machine Learning Intern for [facility] Diagnoses Sepsis secondary to UTI A41.9; N39.0 UTI (urinary tract infection) N39.0 Leukopenia D72.819 Hypothyroidism E03.9
[2020-05-25] MEDS: ondansetron 2 mg/ML SDV 2 mL 4 MG IVP (14:50)
[2020-05-25 15:40] VITALS: BP 147/71; PULSE 71; RESP 18; TEMP 36.8; O2SAT 98
[2020-05-25 19:56] VITALS: BP 103/55; PULSE 74; RESP 17; TEMP 37.3; O2SAT 94
[2020-05-25] MEDS: acetaminophen 325 mg Tablet 650 MG PO (22:31)
[2020-05-25] MEDS: zolpidem 5 mg Tablet PO (22:31)
[2020-05-26] VITALS: BP 110/56; PULSE 67; RESP 16; TEMP 36.8; O2SAT 95
[2020-05-26] MEDS: piperacillin-tazobactam 3.375 GM in sodium chloride 0.9% (plus) 50 ML IV (01:05)
[2020-05-26 03:50] VITALS: BP 95/57; PULSE 60; RESP 18; TEMP 36.7; O2SAT 95
[2020-05-26] MEDS: levothyroxine 150 mcg Tablet 75 MCG PO (05:23)
--- NOTE | 2020-05-26 05:58 | PC.NURSE ---
Patient summary This patient slept well tonight. She had no complaints. She is hoping to go home today. She had good vitals tonight. She is getting up and ambulating by herself well. No concerns on this shift.
[2020-05-26 06:00] VITALS: BMI 27.5
[2020-05-26 06:15] LABS: Basophils # 0.1 10^3/uL (0.0-0.1); Basophils % 0.7 %; Eosinophils # 0.2 10^3/uL (0.0-0.8); Eosinophils % 3.1 %; Hematocrit 33.4 % (37.0-47.0); Hemoglobin 10.3 g/dL (11.5-15.3); Lymphocytes # 1.5 10^3/uL (0.8-4.8); Lymphocytes % 19.8 %; Mean Corpuscular HGB Conc 30.8 g/dL (30.0-36.0); Mean Corpuscular Hemoglobin 29.1 pg (28.0-34.0); Mean Corpuscular Volume 94.4 fL (81-99); Mean Platelet Volume 10.1 fL (7.4-10.4); Monocytes # 0.9 10^3/uL (0.2-0.9); Monocytes % 11.4 %; Neutrophils # 4.73 10^3/uL (1.8-7.7); Neutrophils % 62.7 %; Nucleated Red Blood Cells % 0 %; Platelet Count 674 10^3/cmm (130-400); Red Blood Count 3.54 10^6/uL (4.1-5.3); White Blood Count 7.5 10^3/uL (4.0-10.0)
[2020-05-26 06:42] LABS: Alanine Aminotransferase 13 U/L (0-33); Albumin Level 3.1 g/dL (3.5-5.2); Alkaline Phosphatase 103 IU/L (35-105); Anion Gap 11.4 (5-19); Aspartate Amino Transferase 11 U/L (0-32); Blood Urea Nitrogen 16 mg/dL (8-23); Calcium 8.3 mg/dL (8.5-10.5); Carbon Dioxide 24 mmol/L (22-29); Chloride 108 mmol/L (98-107); Globulin 3.5 g/dL (1.3-4.6); Glucose 99 mg/dL (65-115); Osmolality Calculated 291 mOsm/kg (285-295); Potassium 3.4 mmol/L (3.5-5.1); Sodium 140 mmol/L (136-145); Total Bilirubin 0.6 mg/dL (0.15-1.2); Total Protein 6.6 g/dL (6.6-8.7)
[2020-05-26 08:00] VITALS: BP 120/67; PULSE 75; RESP 16; TEMP 37; O2SAT 93
[2020-05-26] MEDS: pantoprazole DR 40 mg Tablet PO (10:08)
--- NOTE | 2020-05-26 13:23 | PM.DCS ---
Discharge Providers Date of Admission: 05/16/20 08:00 Date of Discharge: May 26, 2020 Attending Provider at Admission: Tomer Gu MD Attending Provider at Discharge: Alexis Callaway MD Primary Care Provider: Duarte Espinal DO Diagnoses at Discharge Discharge Diagnosis (1) Sepsis secondary to UTI: Status: Resolved (2) UTI (urinary tract infection): Status: Resolved (3) Leukopenia: Status: Resolved (4) Hypothyroidism: Status: Chronic Reason for Visit Reason for Visit: vomiting/cold shakes/lower back pain Hospital Course Hospital Course 79 year old female with PMH of hypothyroidism admitted with c/o feeling ill with nausea, chills, low back after waking up in the middle of the night.During this hospital stay she was managed for severe sepsis 2/2 UTI. she was kept on broad spectrum abxs. Urine and blood culture grew E.Coli sensitive to ceftriaxone.She was kept intially kept on ceftriaxone but later was switched to zosyn because wbc count were arising after initial improvement and the patient was having persistent symptoms.She was responded well to zosyn. Final blood and urine cultures were negative at the time of discharge.She also had transient episode of thrombocytopenia during this admission likely related to sepsis.P.C normalized and was was likely having reactive thrombocytosis at the time of discharge. She responded well to the medical management and was discharged in stable condition.To follow her PCP as outpatient. Pertinent Imaging studies : CT abdomen pelvis w con:1. Small bilateral pleural effusions. 2. Very small amount of free fluid in the pelvis of uncertain etiology. 3. Prior cholecystectomy and hysterectomy. 4. Sigmoid diverticulosis without acute diverticulitis. 5. No hepatic biliary dilatation. US renal BI: (05/16 ) No hydronephrosis or solid mass. US Renal B.I : 05/24/20 : Right kidney: Measures 10.4 x 4.4 x 4.1 cm. There is a 1.2 cm cyst in the mid right kidney. No stones. No hydronephrosis. Left kidney: Measures 10.3 x 5.8 x 5.8 cm. There is a 1.5 cm cyst in the medial left kidney and a 1.8 x 1.6 cm cyst in the medial left kidney which are simple. No stones. No hydronephrosis. Urinary bladder: Unremarkable. CV echo complete: Normal left ventricular cavity size. Normal left ventricular systolic function. Left ventricular ejection fraction is estimated at 70 %. No regional wall motion abnormalities. Normal diastolic function. Normal right ventricular size and systolic function. Upper normal pulmonary artery pressure measured at 36 mmHg. Mild mitral valve regurgitation. No prior similar studies to compare. Physical Exam Const: COMMON NORMALS: patient oriented x3 HENMT: COMMON NORMALS: normocephalic and atraumatic HEAD & SCALP: normocephalic and atraumatic Chest: CHEST: Yes Symmetrical chest wall rise Resp: COMMON NORMALS: clear to auscultation bilaterally EFFORT & INSPECTION: Yes symmetric chest movement AUSCULTATION: clear to auscultation bilaterally Cardio: COMMON NORMALS: regular rate, regular rhythm, S1 normal heart sound present, S2 normal heart sound present, No gallops present (Cardio), No murmurs present (Cardio), No rub (Cardio) and Peripheral pulses 2+ throughout RATE: regular rate RHYTHM: regular rhythm HEART SOUNDS: S1 normal heart sound present and S2 normal heart sound present PERIPHERAL PULSES: Peripheral pulses 2+ throughout GI: COMMON NORMALS: Normal to inspection, nondistended, normoactive bowel sounds present, Soft to palpation, non-tender, No hepatosplenomegaly present and no masses AUSCULTATION: Yes normoactive bowel sounds PALPATION: Yes Soft to palpation and Yes No hepatosplenomegaly present RECTAL EXAM: deferred Extremity: COMMON NORMALS: no clubbing, cyanosis or edema and no pedal edema Neuro: COMMON NORMALS: patient oriented x3 Urinary Catheter Management^: Jean-Baptiste Latex Free: Cath Placed During This Visit: yes Reason for Continuing Indwelling Catheter: Acute Urinary Retention or Obstruction Urinary Catheter Date of Insertion: 05/16/20 Urinary Catheter Time of Insertion: 15:10 Discharge Data Data Completed and Pending: Completed Studies During Hospitalization Category Date Time Status CT abdomen pelvis w con* [id number] Rout ine Cat Scan 05/17/20 07:14 Completed XR chest 1V sergo ble [id number] Routine Exams 05/23/20 11:40 Completed XR chest 1V sergo ble [id number] Stat Exams 05/16/20 05:36 Completed CV echo complete* [id number] Routine Ultrasound 05/17/20 07:30 Completed US renal BI* [id number] Routine Ultrasound 05/16/20 10:42 Completed US renal BI* [id number] Routine Ultrasound 05/24/20 20:10 Completed Pending at discharge Category Date Time Status Complete Blood Co unt w/Auto AM LABS Lab 05/27/20 04:00 Ordered Comprehensive Met abolic Panel AM LA BS Lab 05/27/20 04:00 Ordered Labs from last 24 hours 05/26/20 05/26/20 05:48 05:48 WBC 7.5 RBC 3.54 L Hgb 10.3 L Hct 33.4 L MCV 94.4 MCH 29.1 MCHC 30.8 RDW 14.0 Plt Count 674 H MPV 10.1 Neut % (Auto) 62.7 Lymph % (Auto) 19.8 [place] % (Auto) 11.4 Eos % (Auto) 3.1 Baso % (Auto) 0.7 Neut # (Auto) 4.73 Lymph # (Auto) 1.5 [place] # (Auto) 0.9 Eos # (Auto) 0.2 Baso # (Auto) 0.1 Nucleated RBC % (a uto) 0 Nucleated RBCs # 0.0 Sodium 140 Potassium 3.4 L Chloride 108 H Carbon Dioxide 24 Anion Gap 11.4 BUN 16 Creatinine 0.7 GFR Calculation Not Reportable Glucose 99 Calculated Osmolal ity 291 Calcium 8.3 L Total Bilirubin 0.6 AST 11 ALT 13 Alkaline Phosphata se 103 Total Protein 6.6 Albumin 3.1 L Globulin 3.5 Vitals: Last Vital Signs Temp 98.6 F 05/26/20 08:00 Pulse 75 05/26/20 08:00 Resp 16 05/26/20 08:00 BP 120/67 05/26/20 08:00 Pulse Ox 93 05/26/20 08:00 Discharge Plan Discharge Patient Disposition: Home Condition: Stable Prescriptions: Continued levothyroxine 75 mcg tablet 75 mcg PO DAILY@06 RF: 0 zolpidem 10 mg tablet 5 - 10 mg PO BEDTIME PRN (Reason: Sleep) RF: 0 diazepam 5 mg tablet 5 mg PO BID PRN (Reason: Anxiety) RF: 0 Discharge Orders: Discharge Order (Routine); Ordered 05/26/20 Ordered By: Alexis Callaway Referrals: Duarte Espinal DO [Primary Care Provider] - 05/29/20 2:10 pm Discharge Diet: Regular Discharge Activity: Resume usual activity and Increase activity as tolerated Patient Instructions: Urinary Tract Infection in Women (DC) Activity Restrictions/Additional Instructions: Patient will follow PCP as outpatient. She has a appointment in Jul 2020 Discharge Attestations Time Spent in Discharge Care*: greater than 30 min Specific Discharge Activities: educating patient, educating and/or supporting family/caregiver, discussing with welfare case worker/social workers/dc planners, documenting/other paperwork and evaluating patient/reviewing data Status at Discharge: Cognitive status at discharge: cognitively intact, Behavioral status at discharge: cooperative, Functional status at discharge: independent ambulation Overall status at discharge: patient is back to baseline Quality Metrics Clinical Quality Measures During this hospital stay, did patient experience: None Coding Level of Care Code Acute Remote Sensing Advisor for g [facility] Exam Detailed Diagnoses Sepsis secondary to UTI A41.9; N39.0 UTI (urinary tract infection) N39.0 Leukopenia D72.819 Hypothyroidism E03.9
[2020-05-26 15:13] VITALS: BP 120/67; PULSE 75; RESP 16; TEMP 37; O2SAT 93
== END 2020-05-26 11:50 | disposition home or self-care (01) | DRG 871 ==
LOC: ER 08:24 → ICU 08:41 → MEDSURG 05-21 01:26
PROVIDERS: Emergency Medicine; Internal Medicine; Admitting Provider Internal Medicine; Emergency Provider Student in an Organized Health Care Education/Training Program; PCP Family Medicine; Visit Provider Internal Medicine
DX: A41.9 Sepsis, unspecified organism (principal); R65.21 Severe sepsis with septic shock; N39.0 Urinary tract infection, site not specified; E87.2 Acidosis; N17.9 Acute kidney failure, unspecified; Z85.41 Personal history of malignant neoplasm of cervix uteri; E03.9 Hypothyroidism, unspecified; G47.00 Insomnia, unspecified; I95.9 Hypotension, unspecified; R33.9 Retention of urine, unspecified; D69.6 Thrombocytopenia, unspecified; D64.9 Anemia, unspecified; E87.6 Hypokalemia; B96.20 Unspecified Escherichia coli [E. coli] as the cause of diseases classified elsewhere
CPT/HCPCS: 12345; 36415; 51702; 71045; 74177; 76770; 80048; 80053; 80069; 80074; 80202; 81001; 83605; 83690; 83735; 84145; 84443; 84484; 85025; 86140; 87040; 87077; 87086; 87186; 87205; 87426; 87804; 93005; 93306; 96372; 96375; 97161; 97166; 97530; 99283; J0696; J1650; J1940; J2060; J2405; J2543; J2550; J2765; J3370; J3475; J3480; J7030; J7040; Q9967

== ENCOUNTER 2020-07-24 15:56 | Outpatient (RCR) | payer MEDICARE, SELFPAY | END 2020-07-28 23:59 | disposition home or self-care (01) | LOC: SPT 15:56 | PROVIDERS: PCP Family Medicine; Visit Provider Family Medicine | DX: N81.11 Cystocele, midline (principal) | CPT/HCPCS: 97110; 97161 ==

== ENCOUNTER 2020-07-29 06:00 | Outpatient (RCR) | payer MEDICARE, SELFPAY | END 2020-08-28 23:59 | disposition home or self-care (01) | LOC: SPT 06:00 | PROVIDERS: PCP Family Medicine; Visit Provider Family Medicine | DX: N81.11 Cystocele, midline (principal) | CPT/HCPCS: 97110 ==

== ENCOUNTER → 2020-12-11 13:36 | Outpatient (BNVA) | payer MEDICARE, SELFPAY | PROVIDERS: PCP Family Medicine; Visit Provider Nurse Practitioner Family | DX: Z20.822 Contact with and (suspected) exposure to COVID-19 (principal) | CPT/HCPCS: 87635 ==

== ENCOUNTER → 2022-01-21 12:55 | Outpatient (BNVA) | payer MEDICARE, SELFPAY | PROVIDERS: PCP Family Medicine; Visit Provider Family Medicine | DX: R29.90 Unspecified symptoms and signs involving the nervous system (principal); R30.0 Dysuria | CPT/HCPCS: 81000; 87086 ==

== ENCOUNTER → 2022-02-11 12:01 | Outpatient (BNVA) | payer MEDICARE, SELFPAY | PROVIDERS: PCP Family Medicine; Visit Provider Family Medicine | DX: N39.0 Urinary tract infection, site not specified (principal) | CPT/HCPCS: 81000; 87077; 87086; 87184 ==

== ENCOUNTER → 2022-02-23 11:19 | Outpatient (BNVA) | payer MEDICARE, SELFPAY | PROVIDERS: PCP Family Medicine; Visit Provider Family Medicine | DX: N39.0 Urinary tract infection, site not specified (principal) | CPT/HCPCS: 81000; 87086 ==

== ENCOUNTER 2022-09-15 10:23 | Outpatient (CLI) | payer MEDICARE, SELFPAY ==
--- NOTE | 2022-09-15 10:15 | MR_ITS ---
WS: [id number] MRI HEAD WITH CONTRAST TECHNIQUE: Sagittal T1, T2 axial, T2 axial FLAIR, axial susceptibility weighted imaging, axial diffus ion weighted images, and coronal T2 images were obtained. Pre and post-T1 axial and post T1 coronal i mages. ADC and FSPGR images. CLINICAL INFORMATION: tremor, falls, right foot drop COMPARISON: CT head [id number] FINDINGS: Small amount of partially restricted diffusion in the LEFT parasagittal parietal lobe with associated T2 hyperintensity. Small amount of associated enhancement. Findings most likely due to small area of subacute ischemia. No other foci of restricted diffusion. No hemosiderin on susceptibly weighted jhonny ges. Mild small vessel changes. Mild parenchymal volume loss. Normal posterior fossa. Normal vascular flow voids at the skull base. No extra-axial fluid collections. No evidence of mass or mass effect. Paranasal sinuses are well aerated. Mastoid air cells well aerated. Normal posterior nasopharynx and parapharyngeal fat. Normal optic chiasm and pituitary infundibulum. Mild symmetric atrophy temporal lobes and hippocampal formations. Normal optic chiasm and pituitary infundibulum. Normal cavernous sinuses and Meckel's ca ve. No other abnormal foci of enhancement. Normal visualized dural venous sinuses. MR/MR head wo/w con [id number] IMPRESSION: 1. Small focus of partially restricted diffusion LEFT parasagittal parietal lo be with T2 hyperintensity and enhancement is likely due to small focus of subac ruby ischemia. 2. No hemosiderin on susceptibly weighted images. 3. Mild small vessel changes with mild parenchymal volume loss. 4. Normal optic chiasm and pituitary infundibulum. 5. No other suspicious findings.
[2022-09-15] MEDS: gadobenate dimeglumine 20 mL vial IV (11:19)
== END 2022-09-15 10:24 | disposition home or self-care (01) ==
LOC: RAD 10:26
PROVIDERS: PCP Family Medicine; Visit Provider Family Medicine
DX: R25.1 Tremor, unspecified (principal); M21.379 Foot drop, unspecified foot; Z91.81 History of falling
CPT/HCPCS: 70553; A9577

== ENCOUNTER → 2022-11-03 08:53 | Outpatient (BNVA) | payer MEDICARE, SELFPAY | PROVIDERS: PCP Family Medicine; Visit Provider Psychiatry & Neurology Neurology | DX: G25.0 Essential tremor (principal); G45.1 Carotid artery syndrome (hemispheric); Z82.49 Family history of ischemic heart disease and other diseases of the circulatory system; E03.9 Hypothyroidism, unspecified; Z86.73 Personal history of transient ischemic attack (TIA), and cerebral infarction without residual deficits; R29.6 Repeated falls; G47.00 Insomnia, unspecified; R29.2 Abnormal reflex | CPT/HCPCS: 36415; 80053; 83090; 84439; 84443; 84481; 85025; 85210; 85300; 85303; 85306; 86147; 99213 ==

== ENCOUNTER 2022-11-18 08:05 | Outpatient (CLI) | payer MEDICARE, SELFPAY ==
--- NOTE | 2022-11-18 08:15 | USCV_ITS ---
Cheryl Hector Age: 81 Gender: F : 1940 Exam Date: 11/18/2022 08:30 Ordering Phys: Raymundo Thomas MD Technologist: Rommel Victoria Exam Location: [facility] [place] Indication: carotid artery syndrome Risk Factors: Previous Vascular Surgery: Right Brachial BP: / Left Brachial BP: / Right Left Velocity (cm/s) Spectral Plaque Velocity (cm/s) Spectral Plaque Syst/Diast Broadening Syst/Diast Broadening 102.80/7.70 Prox CCA 102.10/ 19.70 85.50/ 18.30 Mid CCA 86.90 / 15.20 81.70/ 16.30 Distal CCA 83.30 / 14.30 69.30/ 18.90 Prox ICA 90.40 / 18.20 87.20/ 21.60 Mid ICA 78.80 / 18.20 130.60/24.10 Distal ICA 100.40/ 24.10 63.00 ECA 109.50 1.02 ICA/CCA 0.91 Antegrade Vertebral Antegrade 60.90/ 14.90 cm/s 54.70/ 14.10 cm/s Tri Subclavian Tri 86.70 128.4 0 CONCLUSIONS Right ICA stenosis <50%. Moderate atheromatous plaque right carotid bulb/ICA. Left ICA stenosis <50%. Mild atheromatous plaque left carotid bulb/ICA. Normal antegrade Doppler flow noted in the right vertebral artery. Normal antegrade Doppler flow noted in the left vertebral artery. Jim Bellamy MD (Electronically Signed) Final Date: 18 November 2022 11:07 S
== END 2022-11-18 08:06 | disposition home or self-care (01) ==
PROVIDERS: PCP Family Medicine; Visit Provider Psychiatry & Neurology Neurology
DX: I65.23 Occlusion and stenosis of bilateral carotid arteries (principal); R25.1 Tremor, unspecified; R29.90 Unspecified symptoms and signs involving the nervous system
CPT/HCPCS: 93880

== ENCOUNTER 2022-12-04 13:54 | Outpatient (CLI) | payer MEDICARE, SELFPAY ==
--- NOTE | 2022-12-04 14:15 | USCV_ITS ---
Cheryl Hector Age: 81 Gender: F : 1940 Exam Date: 12/04/2022 14:35 Ordering Phys: Rakan Arias DO Technologist: Eva Zelaya Exam Location: [facility] [place] Indication: POSSIBLE TIA BP: 126 / 62 HR: 60 Rhythm: Sinus Technical Quality: Adequate MEASUREMENTS (Male / Female) Normal Values 2D ECHO LVOT Diameter 2.0 cm LV Ejection Fraction MOD 2C 67.1 % LV Ejection Fraction 2C AL 67.9 % LA Diameter 3.5 cm LA Width 3.6 cm LA Height 5.0 cm RA Width 3.2 cm RA Height 4.3 cm Aorta at Sinotubular Diameter 2.2 cm IVC Diameter 1.8 cm M-MODE Aortic Annulus Diameter 2.5 cm LA Ao Ratio MM 1.3 MV E Point Septal Separation 0.4 cm DOPPLER AV Peak Velocity 132.0 cm/s LVOT Peak Velocity 113.0 cm/s AV Area Cont Eq vti 2.8 cm squared AV Area Cont Eq pk 2.6 cm squared MV Peak Velocity 107.0 cm/s MV Area PHT 3.3 cm squared Mitral E to A Ratio 1.0 MV E' Velocity 55.0 cm/s Mitral E to MV E' Ratio 16.2 Mitral E to LV E' Lateral Ratio 13.3 Mitral E to LV E' Septal Ratio 21.3 TR Peak Velocity 234.2 cm/s TR Peak Gradient 21.9 mmHg TR Mean Velocity 207.0 cm/s TR Mean Gradient 17.4 mmHg TR Velocity Time Integral 86.3 cm TV Peak E Velocity 50.0 cm/s Right Atrial Pressure 3.0 mmHg Pulmonary Artery Systolic Pressu 24.9 mmHg PV Peak Velocity 77.0 cm/s RV Acceleration Time 0.1 s RV Ejection Time 0.3 s RV AcT/ET 0.3 FINDINGS Left Ventricle Normal left ventricular size, systolic function and wall thickness, with no regional wall motion abnormalities. Left ventricular ejection fraction is estimated at 65 %. Grade II diastolic dysfunction, moderately elevated filling pressures. Right Ventricle Normal right ventricular size and systolic function. Right ventricular systolic pressure 25 mmHg. Right Atrium Normal right atrial size. Left Atrium Mildly increased left atrial size. Mitral Valve Moderate mitral annular calcification. Mildly thickened mitral valve. No mitral valve stenosis. Mild to moderate mitral valve regurgitation. Aortic Valve Aortic valve sclerosis. No aortic valve stenosis. No aortic valve regurgitation. Tricuspid Valve Structurally normal tricuspid valve. No tricuspid valve stenosis. Trace to mild tricuspid valve regurgitation. Pulmonic Valve Structurally normal pulmonic valve. No pulmonary valve stenosis. Trace pulmonary valve regurgitation. Pericardium No pericardial effusion. Aorta Normal size aortic root and proximal ascending aorta. IVC Normal IVC dimension with >50% respiratory change of the inferior vena cava. CONCLUSIONS 1. Normal left ventricular size, systolic function and wall thickness, with no regional wall motion abnormalities. Left ventricular ejection fraction is estimated at 65 %. Grade II diastolic dysfunction, moderately elevated filling pressures. 2. Mildly increased left atrial size. 3. Mild to moderate mitral valve regurgitation. 4. When compared to previous study dated 05/17/2020, mitral regurgitation appears to be slightly worse. Faith Dior MD (Electronically Signed) Final Date: 07 December 2022 10:38 S
== END 2022-12-04 13:55 | disposition home or self-care (01) ==
LOC: RAD 13:56
PROVIDERS: PCP Family Medicine; Visit Provider Psychiatry & Neurology Neurology
DX: Z82.49 Family history of ischemic heart disease and other diseases of the circulatory system (principal); I34.0 Nonrheumatic mitral (valve) insufficiency
CPT/HCPCS: 93306

== ENCOUNTER → 2022-12-07 09:21 | Outpatient (BNVA) | payer MEDICARE, SELFPAY | PROVIDERS: PCP Family Medicine; Visit Provider Internal Medicine Cardiovascular Disease | DX: I63.9 Cerebral infarction, unspecified (principal); R06.02 Shortness of breath; G25.0 Essential tremor; E03.9 Hypothyroidism, unspecified | CPT/HCPCS: 93005; 99204 ==

== ENCOUNTER 2022-12-22 09:16 | Outpatient (CLI) | payer MEDICARE, SELFPAY ==
--- NOTE | 2022-12-22 | ECG_ITS ---
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 Interpretive Statements NAME OF STUDY: EXERCISE SESTAMIBI STRESS TEST INDICATION: Exertional shortness of Breath Baseline blood pressure of 167/82 mm Hg, heart rate 60 beats per minute and oxygen saturation of 94%. EKG showed sinus rhythm, normal axis with normal ST-Ts. The patient exercised for 3 minutes 42 seconds on a standard Niko protocol. Patient attained a maximum heart rate of 125 beats per minute(88% of the maximum predicted heart rate) with a blood pressure at the peak exercise of 155/78 mm Hg and saturation of 99%. The EKG at the peak exercise revealed sinus tachycardia with no significant ST-T wave changes. Patient did not have any chest pain or any significant arrhythmis with the exercise. During the recovery phase, there were no new changes. Blood pressure at the end of the recovery phase was 199/83 mm Hg with a heart rate of 71 beats per minute saturation of 98%. CONCLUSION: 1. Normal EKG response to treadmill exercise. 2. No exercise-induced chest pain or cardiac arrhythmia. 3. Decreased exercise tolerance, attained a maximum of 7 METs. 4. Baseline hypertension with normal response to exercise. 5. Perfusion scan will be documented separately. Electronically Signed On 12-24-2022 17:48:08 CDT by Faith Dior M.D. [id number]
[2022-12-22 10:03] VITALS: BMI 28.3
--- NOTE | 2022-12-22 10:04 | NMCV_ITS ---
NM rosendo perf SPECT r/s* [id number] Cheryl Hector Age: 81 Gender: F : 1940 Exam Date: 12/22/2022 10:15 Ordering Phys: Faith Dior MD ([email or web address]) Technologist: IOANA Ruby Exam Location: [facility] [place] Indications: EXERTIONAL DYSPNEA ON EXERTION STRESS TEST [facility] IMAGE PROTOCOL Rest/Stress 1 Exercise Day Radiopharmaceutical Dose (mCi) Administration Site Administered by Rest: Tc-99m 10.6 IV IOANA Valdes Sestamibi Stress:Tc-99m 32.6 IV IOANA Valdes Sestamialix Rest: 22-Dec-2022 60 Discovery 630 Stress: 22-Dec-2022 30 Discovery 630 Radiopharmaceutical was injected at 88 % maximum heart rate. Images obtained in supine and prone position. SPECT RESULTS Technical Quality: Excellent Raw Data Analysis: Normal Image Corrections: No attenuation or motion correction applied Summed Stress Score: 0 Summed Rest Score: 1 Summed Difference Score: 0 PERFUSION FINDINGS SPECT images demonstrate homogeneous tracer distribution throughout the myocardium. FUNCTIONAL RESULTS (calculated via Gated SPECT) Stress Image LV EF (%): 79 Stress EDV (mL):53 TID: 0.91 Stress ESV (mL):11 FUNCTIONAL FINDINGS: The left ventricle is normal in size. Transient Ischemia Dilatation of 0.91. The left ventricular ejection fraction is normal with a value of 79%. There is hyperdynamic left ventricular global systolic function. There is hyperdynamic left ventricular wall thickening. IMPRESSIONS 1. Myocardial perfusion imaging is normal. 2. Overall left ventricular systolic function is normal without regional wall motion abnormalities, LVEF=79%. 3. No EKG changes with exercise. Refer to separate report for details. 4. Scan indicates low risk for cardiac events. Faith Dior MD (Electronically Signed) Final Date: 24 December 2022 17:43 S
[2022-12-22 11:15] VITALS: BP 166/83; PULSE 70
== END 2022-12-22 09:17 | disposition home or self-care (01) ==
PROVIDERS: PCP Family Medicine; Visit Provider Internal Medicine Cardiovascular Disease
DX: R06.09 Other forms of dyspnea (principal)
CPT/HCPCS: 36415; 78452; 93017; A9500

== ENCOUNTER → 2023-01-19 14:20 | Outpatient (BNVA) | payer MEDICARE, SELFPAY | PROVIDERS: PCP Family Medicine; Visit Provider Psychiatry & Neurology Neurology | DX: G25.0 Essential tremor (principal); Z86.73 Personal history of transient ischemic attack (TIA), and cerebral infarction without residual deficits; R29.2 Abnormal reflex; G47.00 Insomnia, unspecified; E03.9 Hypothyroidism, unspecified; I65.23 Occlusion and stenosis of bilateral carotid arteries; Z82.49 Family history of ischemic heart disease and other diseases of the circulatory system | CPT/HCPCS: 99212 ==

== ENCOUNTER → 2023-05-11 11:53 | Outpatient (BNVA) | payer MEDICARE, SELFPAY | PROVIDERS: PCP Family Medicine; Visit Provider Family Medicine | DX: E03.9 Hypothyroidism, unspecified (principal); G25.0 Essential tremor; I63.9 Cerebral infarction, unspecified; R25.1 Tremor, unspecified; G47.00 Insomnia, unspecified; Z13.6 Encounter for screening for cardiovascular disorders | CPT/HCPCS: 80053; 80061; 84443 ==

== ENCOUNTER 2023-10-21 09:46 | Outpatient (CLI) | payer MEDICARE, SELFPAY ==
--- NOTE | 2023-10-21 10:03 | XR_ITS ---
WS: [id number] Left foot, 3 views, 10/21/2023 Clinical Data: ANKLE/FOOT PAIN/ARTHRITIS Comparison: None. Findings: No fractures or dislocations are seen. No bone destruction or erosion is noted. There is a bunion of the head of the left first metatarsal. There is osteoarthritis between the bases of the metatarsals a nd the cuneiforms and cuboid. There is a plantar spur. XR/XR foot LT min 3V* [id number] Impression: 1. Bunion at the head of the left first metatarsal. 2. Metatarsal tarsal osteoarthritis.
--- NOTE | 2023-10-21 10:03 | XR_ITS ---
WS: [id number] Right foot, 3 views, 10/21/2023 Clinical Data: ANKLE/FOOT PAIN/ARTHRITIS Comparison: None. Findings: No fractures or dislocations are seen. No bone destruction or erosion is noted. The joint spaces and soft tissues are normal. There is a plantar spur XR/XR foot RT min 3V* [id number] Impression: Negative right foot.
== END 2023-10-21 09:47 | disposition home or self-care (01) ==
LOC: RAD 09:47
PROVIDERS: PCP Family Medicine; Visit Provider Family Medicine
DX: M19.072 Primary osteoarthritis, left ankle and foot (principal); R60.9 Edema, unspecified; M21.612 Bunion of left foot; M77.32 Calcaneal spur, left foot; M77.31 Calcaneal spur, right foot
CPT/HCPCS: 73630

== ENCOUNTER → 2023-11-02 12:22 | Outpatient (BNVA) | payer MEDICARE, SELFPAY | PROVIDERS: PCP Family Medicine; Visit Provider Family Medicine | DX: E03.9 Hypothyroidism, unspecified (principal); R60.9 Edema, unspecified; R06.02 Shortness of breath | CPT/HCPCS: 80053; 83880; 84443; 85025 ==

== ENCOUNTER → 2023-12-15 11:30 | Outpatient (BNVA) | payer MEDICARE, SELFPAY | PROVIDERS: PCP Family Medicine; Visit Provider Podiatrist Foot & Ankle Surgery | DX: M19.071 Primary osteoarthritis, right ankle and foot; M19.072 Primary osteoarthritis, left ankle and foot; M21.619 Bunion of unspecified foot; M21.41 Flat foot [pes planus] (acquired), right foot; M21.42 Flat foot [pes planus] (acquired), left foot | CPT/HCPCS: 99203 ==

== ENCOUNTER → 2024-01-05 13:50 | Outpatient (BNVA) | payer MEDICARE, SELFPAY | PROVIDERS: PCP Family Medicine; Visit Provider Psychiatry & Neurology Neurology | DX: G25.0 Essential tremor (principal) | CPT/HCPCS: 99212 ==

== ENCOUNTER 2024-01-19 09:27 | Outpatient (CLI) | payer MEDICARE, SELFPAY ==
--- NOTE | 2024-01-19 09:30 | MR_ITS ---
WS: [id number] MRI CERVICAL SPINE NONCONTRAST AND CONTRAST TECHNIQUE: Sagittal T1, T2 and STIR imaging. Axial T2, gradient, and fiesta imaging. Post gadolinium imaging was obtained. CLINICAL INFORMATION: R25.1 - Tremor, unspecified COMPARISON: None. FINDINGS: Some images degraded by motion. Straightening of the normal cervical lordosis. Cord signal is normal. No high-grade central canal elias rowing. Mild disc bulging at C4-C6. No suspicious enhancing lesions in the cervical cord. C2-C3: Mild facet arthropathy. Spinal canal and foramen are patent. C3-C4: Mild disc osteophyte complex with endplate ridging. Mild bilateral bony foraminal narrowing. S cain canal is patent. C4-C5: Tiny RIGHT paracentral protrusion with slight indentation on the cervical cord. Mild central c anal stenosis. Mild LEFT greater than RIGHT bony foraminal narrowing. Mild facet arthropathy. C5-C6: Disc osteophyte protrusion with slight indentation on the cervical cord. Mild central canal st enosis. Mild LEFT bony foraminal narrowing. Mild facet arthropathy. C6-C7: Disc osteophyte complex eccentric to the LEFT. Moderate LEFT bony foraminal narrowing. Spinal canal is patent. C7-T1: Normal. Visualized brain stem structures: Normal. Prevertebral soft tissues: Normal. MR/MR cervical spine wo/w [id number] IMPRESSION: 1. Straightening of the normal cervical lordosis. Cord signal is normal. 2. Mild central canal stenosis due to small disc osteophyte protrusions at C4- C5 and C5-C6 with slight indentation of the cervical cord. 3. Moderate LEFT C6-7 bony foraminal narrowing. 4. No abnormal gadolinium enhancement.
[2024-01-19] MEDS: gadobenate dimeglumine 20 mL vial IV (09:45)
== END 2024-01-19 09:28 | disposition home or self-care (01) ==
LOC: RAD 09:29
PROVIDERS: PCP Family Medicine; Visit Provider Psychiatry & Neurology Neurology
DX: M99.61 Osseous and subluxation stenosis of intervertebral foramina of cervical region (principal); M25.78 Osteophyte, vertebrae; R25.1 Tremor, unspecified
CPT/HCPCS: 72156; A9577

== ENCOUNTER → 2024-01-25 13:09 | Outpatient (BNVA) | payer MEDICARE, SELFPAY | PROVIDERS: PCP Family Medicine; Visit Provider Orthopaedic Surgery | DX: M54.2 Cervicalgia (principal) | CPT/HCPCS: 72050; 99203 ==

== ENCOUNTER 2024-02-04 08:59 | Outpatient (CLI) | payer MEDICARE, SELFPAY | END 2024-02-04 09:00 | disposition home or self-care (01) | LOC: SPT 09:00 | PROVIDERS: PCP Family Medicine; Visit Provider Podiatrist Foot & Ankle Surgery | DX: Z46.89 Encounter for fitting and adjustment of other specified devices (principal); M21.41 Flat foot [pes planus] (acquired), right foot; M21.42 Flat foot [pes planus] (acquired), left foot; M21.619 Bunion of unspecified foot | CPT/HCPCS: L3030 ==

== ENCOUNTER → 2024-03-15 11:13 | Outpatient (BNVA) | payer MEDICARE, SELFPAY | PROVIDERS: PCP Family Medicine; Visit Provider Podiatrist Foot & Ankle Surgery | DX: M21.619 Bunion of unspecified foot; M21.41 Flat foot [pes planus] (acquired), right foot; M21.42 Flat foot [pes planus] (acquired), left foot; M19.071 Primary osteoarthritis, right ankle and foot; M19.072 Primary osteoarthritis, left ankle and foot | CPT/HCPCS: 99213 ==

== ENCOUNTER → 2024-05-03 13:07 | Outpatient (BNVA) | payer MEDICARE, SELFPAY | PROVIDERS: PCP Family Medicine; Visit Provider Psychiatry & Neurology Neurology | DX: G25.0 Essential tremor (principal); I65.23 Occlusion and stenosis of bilateral carotid arteries; E03.9 Hypothyroidism, unspecified | CPT/HCPCS: 99212; 99213 ==

== ENCOUNTER 2024-05-16 12:06 | Outpatient (CLI) | payer MEDICARE, SELFPAY ==
--- NOTE | 2024-05-16 12:45 | USCV_ITS ---
Cheryl Hector Age: 83 Gender: F : 1940 Exam Date: 05/16/2024 12:34 Ordering Phys: Raymundo Thomas MD Technologist: USR [place]am [place] [facility] [place] Indication: stroke and stenosis Risk Factors: Previous Vascular Surgery: Right Brachial BP: / Left Brachial BP: / Right Left Velocity (cm/s) Spectral Plaque Velocity (cm/s) Spectral Plaque Syst/Diast Broadening Syst/Diast Broadening 73.80/ 18.00 Prox CCA 67.20 / 15.00 71.50/ 16.80 Mid CCA 62.90 / 16.00 56.30/ 16.00 Distal CCA 71.70 / 20.90 69.70/ 23.60 Prox ICA 62.10 / 17.60 67.30/ 26.00 Mid ICA 82.30 / 27.80 86.50/ 32.10 Distal ICA 68.90 / 26.20 81.30 ECA 69.10 1.20 ICA/CCA 0.90 Antegrade Vertebral Antegrade 39.50/ 11.50 cm/s 49.30/ 12.10 cm/s Tri Subclavian Tri 51.90 70.40 CONCLUSIONS Right ICA stenosis <50%. Mild atheromatous plaque right carotid bulb/ICA. Left ICA stenosis <50%.mild atheromatous plaque left carotid bulb/ICA. Intimal thickening in the common carotid arteries and internal carotid arteries bilaterally. Normal antegrade Doppler flow noted in the right vertebral artery. Normal antegrade Doppler flow noted in the left vertebral artery. Multicystic/nodular thyroid partially visualized. Recommend f/u thryoid ultrasound Jim Bellamy MD (Electronically Signed) Final Date: 16 May 2024 17:12 S
== END 2024-05-16 12:07 | disposition home or self-care (01) ==
LOC: RAD 12:07
PROVIDERS: PCP Family Medicine; Visit Provider Psychiatry & Neurology Neurology
DX: I65.23 Occlusion and stenosis of bilateral carotid arteries (principal); E03.9 Hypothyroidism, unspecified
CPT/HCPCS: 93880

== ENCOUNTER → 2024-09-25 09:29 | Outpatient (BNVA) | payer MEDICARE, SELFPAY | PROVIDERS: PCP Family Medicine; Visit Provider Family Medicine | DX: Z00.00 Encounter for general adult medical examination without abnormal findings (principal); E03.9 Hypothyroidism, unspecified; M19.90 Unspecified osteoarthritis, unspecified site; I63.9 Cerebral infarction, unspecified; G47.00 Insomnia, unspecified; R25.1 Tremor, unspecified | CPT/HCPCS: 80053; 80061; 82607; 84443; 85025 ==

== ENCOUNTER → 2024-11-01 12:47 | Outpatient (BNVA) | payer MEDICARE, SELFPAY | PROVIDERS: PCP Family Medicine; Visit Provider Psychiatry & Neurology Neurology | DX: G25.0 Essential tremor (principal) | CPT/HCPCS: 99212 ==

== ENCOUNTER 2024-11-13 09:33 | Outpatient (CLI) | payer MEDICARE, SELFPAY ==
[2024-11-13 10:34] LABS: Vitamin B12 590 pg/mL (232-1245)
== END 2024-11-13 09:34 | disposition home or self-care (01) ==
PROVIDERS: PCP Family Medicine; Visit Provider Family Medicine
DX: E53.8 Deficiency of other specified B group vitamins (principal)
CPT/HCPCS: 36415; 82607

== ENCOUNTER 2025-03-20 09:55 | Outpatient (CLI) | payer MEDICARE, SELFPAY ==
[2025-03-20 12:44] LABS: Alanine Aminotransferase 7 U/L (0-33); Albumin Level 4.3 g/dL (3.5-5.2); Alkaline Phosphatase 79 U/L (35-105); Anion Gap 15.9 (5-19); Aspartate Amino Transferase 12 U/L (0-32); Blood Urea Nitrogen 16 mg/dL (8-23); Calcium 9.1 mg/dL (8.5-10.5); Carbon Dioxide 25 mmol/L (22-29); Chloride 104 mmol/L (98-107); Cholesterol 208 mg/dL (0-200); Globulin 3.3 g/dL (1.3-4.6); Glucose 72 mg/dL (65-115); HDL Cholesterol 55 mg/dL (60-100); Osmolality Calculated 292 mOsm/kg (285-295); Potassium 3.9 mmol/L (3.5-5.1); Sodium 141 mmol/L (136-145); Total Protein 7.6 g/dL (6.6-8.7); Triglycerides 128 mg/dL (0-150); VLDL Cholestrol Calculation 26 mg/dL (0-30)
[2025-03-20 12:45] LABS: Thyroid Stimulating Hormone 2.67 uIU/mL (0.27-4.20); Vitamin B12 1532 pg/mL (232-1245)
== END 2025-03-20 09:56 | disposition home or self-care (01) ==
LOC: LAB 09:58
PROVIDERS: PCP Family Medicine; Visit Provider Family Medicine
DX: E03.9 Hypothyroidism, unspecified (principal); E53.8 Deficiency of other specified B group vitamins; M19.90 Unspecified osteoarthritis, unspecified site; R25.1 Tremor, unspecified; G47.00 Insomnia, unspecified
CPT/HCPCS: 36415; 80053; 80061; 82607; 84443